=== PATIENT | male | born 1995 | race Caucasian/White ===

== ENCOUNTER 2019-03-27 21:39 | Emergency (ER) | payer OTHER ==
[2019-03-27 21:44] VITALS: PULSE 78
[2019-03-27] MEDS ORDERED: ACET/COD 300 MG/30 MG STARTER PACK 6 TAB BTL PO STA (22:32)
--- NOTE | 2019-03-27 22:38 | ED ---
Upper Extremity HPI - General Chief Complaint: Extremity Injury, Upper Stated Complaint: arm/hand pain & numbness Time Seen by Provider: 03/27/19 21:48 Source: patient Mode of arrival: ambulatory Limitations: no limitations - History of Present Illness Initial Comments: 24-year-old male presenting for pain in the joints of the hands bilaterally and the right wrist. 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 He states that he has a tingling sensation in his right hand that extends from below the wrist. Patient states the joints in all 5 digits of both hands have been hurting increasing for the past week. Patient states is work-related denies any direct trauma denies any redness or swelling. Denies any recent STDs. He denies any pain of the lower extremity joints or the elbows. Denies fevers. Patient denies any history of rheumatoid arthritis. Patient denies any neck pain. Her neck injury. Remaining review of systems negative. - Related Data Previous Rx's Medication Instructions Recorded Ibuprofen 800 mg PO Q8H PRN 7 Days #21 tablet 03/27/19 predniSONE 20 mg PO BID 4 Days #8 tab 03/27/19 Allergies Allergy/AdvReac Type Severity Reaction Status Date / Time No Known Allergies Allergy Verified 03/27/19 21:44 Review of Systems ROS Statement: Those systems with pertinent positive or pertinent negative responses have been documented in the HPI. ROS Other: All systems not noted in ROS Statement are negative. Past Medical History Past Medical History: No Reported History History of Any Multi-Drug Resistant Organisms: None Reported Past Surgical History: No Surgical Hx Reported Past Psychological History: No Psychological Hx Reported Smoking Status: Current every day smoker Past Alcohol Use History: Occasional Past Drug Use History: None Reported General Exam - General Exam Comments Initial Comments: General: The patient is awake and alert, in no distress, and does not appear acutely ill. Eye: Pupils are equal, round and reactive to light, extra-ocular movements are intact. No nystagmus. There is normal conjunctiva bilaterally. No signs of icterus. Ears, nose, mouth and throat: There are moist mucous membranes and no oral lesions. Neck: The neck is supple, there is no tenderness or JVD. Cardiovascular: There is a regular rate and rhythm. No murmur, rub or gallop is appreciated. Respiratory: Lungs are clear to auscultation, respirations are non-labored, breath sounds are equal. No wheezes, stridor, rales, or rhonchi. Musculoskeletal: Normal inspection of the hands bilaterally and wrists. No smoking soft tissue swelling patient is able to fully range at the MTP DIP and PIP joints. Patient is able to flex extend at the wrist and the okay fingers crossed and thumbs up sign of the hands bilaterally. +2 radial pulses equal comparison bilaterally. Positive Tinel sign of the right wrist. Patient is full sensation. Proximal distal to complaint sites. Patient has no midline tenderness to palpation of the cervical spine. Full strength of the upper extremities equal and comparison bilaterally. No noted redness. Neurological: A&O x 3. CN II-XII intact, There are no obvious motor or sensory deficits. Coordination appears grossly intact. Speech is normal. Skin: Skin is warm and dry and no rashes or lesions are noted. Psychiatric: Cooperative, appropriate mood & affect, normal judgment. 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 Increasing for the past week. States he was lifting very heavy objects. Positive Tinel sign. No soft tissue swelling. No trauma to the hand. No recent STDs. No conjunctival injection on examination. No pain with urination or penile discharge. Remaining review systems negative. Patient is agreeable with discharge without imaging studies as there is no direct trauma. Patient be given a prescription for steroids and NSAIDs. Patient is instructed to follow- up with primary care provider. Eyes occupation to rest ice hands. Patient was provided work note, discussed case with Dr. Bautista who is agreeable with [facility]. Disposition Clinical Impression: Overuse injury, Bilateral hand pain Disposition: HOME SELF-CARE Condition: Good Instructions (If sedation given, give patient instructions): Paresthesia (ED), Tendinitis (ED) Additional Instructions: Please use medication as discussed. Please follow-up with family doctor in the next 2 days. Rest hand/wrists. Please return to emergency room if the symptoms increase or worsen or for any other concerns. Prescriptions: Ibuprofen 800 mg PO Q8H PRN 7 Days #21 tablet PRN Reason: Pain predniSONE 20 mg PO BID 4 Days #8 tab Is patient prescribed a controlled substance at d/c from ED?: No Referrals: None,Stated [Primary Care Provider] - 1-2 days Time of Disposition: 22:37
[2019-03-27 23:03] VITALS: BP 142/75; RESP 16; TEMP 97.8
== END 2019-03-27 23:00 | disposition home or self-care (01) ==
LOC: EC 21:39
DX: M70.841 Other soft tissue disorders related to use, overuse and pressure, right hand (principal); M70.842 Other soft tissue disorders related to use, overuse and pressure, left hand; F17.200 Nicotine dependence, unspecified, uncomplicated; X50.0XXA Overexertion from strenuous movement or load, initial encounter; Y93.89 Activity, other specified
CPT/HCPCS: 99283

== ENCOUNTER 2019-07-26 16:56 | Emergency (ER) | payer SELFPAY ==
[2019-07-26] MEDS ORDERED: SODIUM CHLORIDE 0.9% 1,000 ML IV STA (17:25)
[2019-07-26] MEDS ORDERED: ONDANSETRON 4 MG/2 ML VIAL IVP STA (17:25)
[2019-07-26 18:07] LABS: Basophils % (A) 0 %; Eosinophils % (A) 1 %; HCT 39.3 % (39.0-53.0); HGB 13.6 gm/dL (13.0-17.5); Lymphocytes # (A) 1.2 k/uL (1.0-4.8); Lymphocytes % (A) 15 %; MCH 33.5 pg (25.0-35.0); MCHC 34.5 g/dL (31.0-37.0); MCV 97.3 fL (80.0-100.0); Mean Platelet Volume 7.2; Monocytes # (A) 0.5 k/uL (0-1.0); Monocytes % (A) 7 %; Neutrophils # (A) 6.1 k/uL (1.3-7.7); Neutrophils % (A) 76 %; Platelet Count 183 k/uL (150-450); RBC 4.04 m/uL (4.30-5.90); RDW 11.6 % (11.5-15.5); WBC 8.1 k/uL (3.8-10.6)
[2019-07-26 18:10] LABS: Appearance,Urine Clear (Clear); Bilirubin,Urine Negative (Negative); Blood,Urine Negative (Negative); Color,Urine Yellow; Glucose,Urine (UA) Negative (Negative); Ketones,Urine 3+ (Negative); Leukocyte Esterase,Urine Negative (Negative); Nitrite,Urine Negative (Negative); PH, Urine 7.5 (5.0-8.0); Protein,Urine Trace (Negative); Specific Gravity,Urine 1.027 (1.001-1.035)
[2019-07-26 18:21] LABS: Amphetamine Screen,Urine Detected (NotDetected); Barbiturate Screen,Urine Not Detected (NotDetected); Benzodiazepines Screen,Urine Detected (NotDetected); Cocaine Screen,Urine Not Detected (NotDetected); Methadone Screen, Urine Not Detected (NotDetected); Opiate Screen,Urine Not Detected (NotDetected); Oxycodone Screen, Urine Not Detected (NotDetected); Phencyclidine Screen,Urine Not Detected (NotDetected); Tricyclic Antidepressant,Urine Not Detected (NotDetected); Urn Cannabinoid Scrn Not Detected (NotDetected)
[2019-07-26 18:25] LABS: ALT 35 U/L (21-72); AST 45 U/L (17-59); Acetaminophen <10.0 ug/mL; African American GFR (CKD) >90 (>60 ml/min/1.73 sqM); Albumin 4.1 g/dL (3.5-5.0); Alkaline Phosphatase 58 U/L (38-126); Amylase <30 U/L (30-110); Anion Gap 12 mmol/L; Blood Urea Nitrogen 22 mg/dL (9-20); Calcium 9.6 mg/dL (8.4-10.2); Carbon Dioxide 24 mmol/L (22-30); Chloride 102 mmol/L (98-107); Glucose 139 mg/dL (74-99); Non-African American GFR(CKD) >90 (>60 ml/min/1.73 sqM); Potassium 3.6 mmol/L (3.5-5.1); Sodium 138 mmol/L (137-145); Total Bilirubin 0.9 mg/dL (0.2-1.3); Total Protein 6.3 g/dL (6.3-8.2)
[2019-07-26 18:34] LABS: Partial Thromboplastin Time 29.9 sec (22.0-30.0); Prothrombin Time 10.9 sec (9.0-12.0)
--- NOTE | 2019-07-26 18:53 | ED ---
General Adult HPI - General Chief complaint: Overdose Stated complaint: Side pain/numbess/jaw pain Time Seen by Provider: 07/26/19 17:18 Source: patient Mode of arrival: ambulatory Limitations: no limitations - History of Present Illness Initial comments: Patient is a 24-year-old male presenting to the emergency Department with complaints of nausea, vomiting and abdominal pain as going on since this morning. Patient states he thinks he took 4 tablets of 750 Vicodin that were really old that he found. Patient states a few hours after he took these he started having nausea and vomiting and abdominal cramping. Patient denies smoking history but does admit to drug history but will not elaborate on what he takes. Patient denies having suicidal or homicidal thoughts. Patient denies fever, chills, diarrhea. Patient denies history of abdominal surgeries. Patient having regular bowel movements. Patient has no other complaints at this time. Upon arrival to ER, vital signs are stable. - Related Data Previous Rx's Medication Instructions Recorded Ibuprofen 800 mg PO Q8H PRN 7 Days #21 tablet 03/27/19 predniSONE 20 mg PO BID 4 Days #8 tab 03/27/19 Allergies Allergy/AdvReac Type Severity Reaction Status Date / Time No Known Allergies Allergy Verified 03/27/19 21:44 Review of Systems ROS Statement: Those systems with pertinent positive or pertinent negative responses have been documented in the HPI. ROS Other: All systems not noted in ROS Statement are negative. Past Medical History Past Medical History: No Reported History History of Any Multi-Drug Resistant Organisms: None Reported Past Surgical History: No Surgical Hx Reported Past Psychological History: No Psychological Hx Reported Smoking Status: Current every day smoker Past Alcohol Use History: Occasional Past Drug Use History: None Reported General Exam - General Exam Comments Initial Comments: GENERAL: Patient is resting comfortably on the bed during exam, disheveled in appearance. HEAD: Atraumatic, normocephalic. EYES: Pupils equal round and reactive to light, extraocular movements intact, sclera anicteric, conjunctiva are normal. ENT: TMs normal, nares patent, oropharynx clear without exudates. Moist mucous membranes. NECK: Normal range of motion, supple without lymphadenopathy or JVD. LUNGS: Breath sounds clear to auscultation bilaterally and equal. No wheezes rales or rhonchi. HEART: Regular rate and rhythm without murmurs, rubs or gallops. ABDOMEN: Mild tenderness to palpation of the entire abdomen. No severe tenderness in any quadrant. Soft, normoactive bowel sounds. No masses appreciated. : Deferred EXTREMITIES: Normal range of motion, no pitting or edema. No clubbing or cyanosis. NEUROLOGICAL: Cranial nerves II through XII grossly intact. Normal speech, normal gait. PSYCH: Normal mood, normal affect. SKIN: Warm, Dry, normal turgor, no rashes or lesions noted. Limitations: no limitations Course Vital Signs 07/26/19 07/26/19 17:06 19:10 Temperature 97.5 F L 98 F Pulse Rate 78 75 Respiratory 16 18 Rate Blood Pressure 115/75 120/70 O2 Sat by Pulse 100 98 Oximetry Medical Decision Making - Medical Decision Making Patient is a 24-year-old male presenting with nausea, vomiting, abdominal cramping since this morning. Patient admits to taking 4 tablets of what he thinks his Vicodin. Patient admits to taking different tablets, whatever he can get his hands on. CBC normal, coags are normal. CMP is normal. Urine shows 3+ ketones otherwise no signs of infection. Urine tox shows amphetamines and benzos. Acetaminophen is normal. Opiates are negative. Patient was given fluids and Zofran and reports improvement in symptoms. Patient is requesting to be discharged. Patient vital signs remained stable. Strict return parameters were discussed with the patient and he verbalized understanding. Case discussed with Dr. Kate. - Lab Data Result diagrams: 07/26/19 17:55 07/26/19 17:55 Lab Results 07/26/19 07/26/19 07/26/19 Range/Units 17:55 17:55 17:55 WBC 8.1 (3.8-10.6) k/uL RBC 4.04 L (4.30-5.90) m/uL Hgb 13.6 (13.0-17.5) gm/dL Hct 39.3 (39.0-53.0) % MCV 97.3 (80.0-100.0) fL MCH 33.5 (25.0-35.0) pg MCHC 34.5 (31.0-37.0) g/dL RDW 11.6 (11.5-15.5) % Plt Count 183 (150-450) k/uL Neutrophils % 76 % Lymphocytes % 15 % Monocytes % 7 % Eosinophils % 1 % Basophils % 0 % Neutrophils # 6.1 (1.3-7.7) k/uL Lymphocytes # 1.2 (1.0-4.8) k/uL Monocytes # 0.5 (0-1.0) k/uL Eosinophils # 0.0 (0-0.7) k/uL Basophils # 0.0 (0-0.2) k/uL PT 10.9 (9.0-12.0) sec INR 1.0 (<1.2) APTT 29.9 (22.0-30.0) sec Sodium 138 (137-145) mmol/L Potassium 3.6 (3.5-5.1) mmol/L Chloride 102 (98-107) mmol/L Carbon Dioxide 24 (22-30) mmol/L Anion Gap 12 mmol/L BUN 22 H (9-20) mg/dL Creatinine 0.83 (0.66-1.25) mg/dL Est GFR (CKD-EPI)AfAm >90 (>60 ml/min/1.73 sqM) Est GFR (CKD-EPI)NonAf >90 (>60 ml/min/1.73 sqM) Glucose 139 H (74-99) mg/dL Calcium 9.6 (8.4-10.2) mg/dL Total Bilirubin 0.9 (0.2-1.3) mg/dL AST 45 (17-59) U/L ALT 35 (21-72) U/L Alkaline Phosphatase 58 (38-126) U/L Total Protein 6.3 (6.3-8.2) g/dL Albumin 4.1 (3.5-5.0) g/dL Amylase <30 L (30-110) U/L Lipase 31 (23-300) U/L Urine Color Urine Appearance (Clear) Urine pH (5.0-8.0) Ur Specific [place] (1.001-1.035) Urine Protein (Negative) Urine Glucose (UA) (Negative) Urine Ketones (Negative) Urine Blood (Negative) Urine Nitrite (Negative) Urine Bilirubin (Negative) Urine Urobilinogen (<2.0) mg/dL Ur Leukocyte Esterase (Negative) Urine Opiates Screen (NotDetected) Ur Oxycodone Screen (NotDetected) Urine Methadone Screen (NotDetected) Ur Propoxyphene Screen (NotDetected) Acetaminophen <10.0 ug/mL Ur Barbiturates Screen (NotDetected) U Tricyclic Antidepress (NotDetected) Ur Phencyclidine Scrn (NotDetected) Ur Amphetamines Screen (NotDetected) U Methamphetamines Scrn (NotDetected) U Benzodiazepines Scrn (NotDetected) Urine Cocaine Screen (NotDetected) U Marijuana (THC) Screen (NotDetected) 07/26/19 Range/Units 18:00 WBC (3.8-10.6) k/uL RBC (4.30-5.90) m/uL Hgb (13.0-17.5) gm/dL Hct (39.0-53.0) % MCV (80.0-100.0) fL MCH (25.0-35.0) pg MCHC (31.0-37.0) g/dL RDW (11.5-15.5) % Plt Count (150-450) k/uL Neutrophils % % Lymphocytes % % Monocytes % % Eosinophils % % Basophils % % Neutrophils # (1.3-7.7) k/uL Lymphocytes # (1.0-4.8) k/uL Monocytes # (0-1.0) k/uL Eosinophils # (0-0.7) k/uL Basophils # (0-0.2) k/uL PT (9.0-12.0) sec INR (<1.2) APTT (22.0-30.0) sec Sodium (137-145) mmol/L Potassium (3.5-5.1) mmol/L Chloride (98-107) mmol/L Carbon Dioxide (22-30) mmol/L Anion Gap mmol/L BUN (9-20) mg/dL Creatinine (0.66-1.25) mg/dL Est GFR (CKD-EPI)AfAm (>60 ml/min/1.73 sqM) Est GFR (CKD-EPI)NonAf (>60 ml/min/1.73 sqM) Glucose (74-99) mg/dL Calcium (8.4-10.2) mg/dL Total Bilirubin (0.2-1.3) mg/dL AST (17-59) U/L ALT (21-72) U/L Alkaline Phosphatase (38-126) U/L Total Protein (6.3-8.2) g/dL Albumin (3.5-5.0) g/dL Amylase (30-110) U/L Lipase (23-300) U/L Urine Color Yellow Urine Appearance Clear (Clear) Urine pH 7.5 (5.0-8.0) Ur Specific [place] 1.027 (1.001-1.035) Urine Protein Trace H (Negative) Urine Glucose (UA) Negative (Negative) Urine Ketones 3+ H (Negative) Urine Blood Negative (Negative) Urine Nitrite Negative (Negative) Urine Bilirubin Negative (Negative) Urine Urobilinogen 2.0 (<2.0) mg/dL Ur Leukocyte Esterase Negative (Negative) Urine Opiates Screen Not Detected (NotDetected) Ur Oxycodone Screen Not Detected (NotDetected) Urine Methadone Screen Not Detected (NotDetected) Ur Propoxyphene Screen Not Detected (NotDetected) Acetaminophen ug/mL Ur Barbiturates Screen Not Detected (NotDetected) U Tricyclic Antidepress Not Detected (NotDetected) Ur Phencyclidine Scrn Not Detected (NotDetected) Ur Amphetamines Screen Detected H (NotDetected) U Methamphetamines Scrn Not Detected (NotDetected) U Benzodiazepines Scrn Detected H (NotDetected) Urine Cocaine Screen Not Detected (NotDetected) U Marijuana (THC) Screen Not Detected (NotDetected) Disposition Clinical Impression: Nausea & vomiting Disposition: HOME SELF-CARE Condition: Stable Instructions (If sedation given, give patient instructions): Acute Nausea and Vomiting (ED) Additional Instructions: Please return to the Emergency Department if symptoms worsen or any other concerns. Is patient prescribed a controlled substance at d/c from ED?: No Referrals: None,Stated [Primary Care Provider] - 1-2 days
[2019-07-26 19:12] VITALS: BP 120/70; PULSE 75; RESP 18; TEMP 98
== END 2019-07-26 19:13 | disposition home or self-care (01) ==
LOC: EC 16:56
DX: R11.2 Nausea with vomiting, unspecified (principal); R10.9 Unspecified abdominal pain; R20.0 Anesthesia of skin; R68.84 Jaw pain; F17.200 Nicotine dependence, unspecified, uncomplicated
CPT/HCPCS: 36415; 80053; 82150; 83690; 85025; 85610; 85730; 81003; 80306; 80329; 99284; 96374; 96361; J2405

== ENCOUNTER 2020-06-28 19:09 | Inpatient (IN) | payer MEDICAID, OTHER ==
--- NOTE | 2020-06-28 19:58 | ED ---
Overdose HPI - General Stated Complaint: Post Op - R Hand Injury Time Seen by Provider: 06/28/20 19:57 Source: RN notes reviewed, old records reviewed Limitations: no limitations - History of Present Illness Initial Comments: This is a 25-year-old male DF for evaluation patient originally presented to the ER today for complaint of right hand pain history of right hand surgery. Patient is in no significant drug abuser, [place] who is waiting in the waiting room patient did overdose he was resuscitated while he was in an 8 is a priority one given Narcan after being ventilated and was able to respond. At this time patient states that he is wants to and complaining of severe pain in his right hand MD Complaint: intentional overdose, other -: days(s) Intent: want to go to sleep, want to escape How Overdose Was Discovered: called family/friend Context: Intentional Overdose: relationship problems Context: Accidental Overdose: wanted to get high Associated Symptoms: depression Treatments Prior to Arrival: none - Related Data Home Medications Medication Instructions Recorded Confirmed No Known Home Medications 06/29/20 06/29/20 Allergies Allergy/AdvReac Type Severity Reaction Status Date / Time No Known Allergies Allergy Verified 06/29/20 16:38 Review of Systems ROS Statement: Those systems with pertinent positive or pertinent negative responses have been documented in the HPI. ROS Other: All systems not noted in ROS Statement are negative. Past Medical History Past Medical History: No Reported History History of Any Multi-Drug Resistant Organisms: None Reported Past Surgical History: No Surgical Hx Reported Past Psychological History: No Psychological Hx Reported Past Alcohol Use History: Occasional Past Drug Use History: None Reported - Past Family History Mother Family Medical History: No Reported History General Exam Limitations: altered mental status, physical limitation General appearance: obtunded Head exam: Present: atraumatic, normocephalic, normal inspection Eye exam: Present: normal appearance, other (Pinpoint pupils). Absent: scleral icterus, conjunctival injection, periorbital swelling ENT exam: Present: normal exam, mucous membranes moist Neck exam: Present: normal inspection. Absent: tenderness, meningismus, lymphadenopathy Respiratory exam: Present: other (Patient is a). Absent: respiratory distress, wheezes, rales, rhonchi, stridor Cardiovascular Exam: Present: normal rhythm, tachycardia, normal heart sounds. Absent: systolic murmur, diastolic murmur, rubs, gallop, clicks GI/Abdominal exam: Present: soft, normal bowel sounds. Absent: distended, tenderness, guarding, rebound, rigid Extremities exam: Present: normal inspection, full ROM, normal capillary refill. Absent: tenderness, pedal edema, joint swelling, calf tenderness Back exam: Present: normal inspection Neurological exam: Present: alert, oriented X3, CN II-XII intact Psychiatric exam: Present: normal affect, normal mood Skin exam: Present: warm, dry, intact, normal color. Absent: rash Course Vital Signs 06/28/20 06/28/20 06/29/20 19:44 19:46 03:00 Temperature 98.3 F Pulse Rate 110 H 105 H Respiratory 20 20 16 Rate Blood Pressure 158/88 142/90 O2 Sat by Pulse 98 98 Oximetry 06/29/20 15:42 Temperature 98.1 F Pulse Rate 72 Respiratory 18 Rate Blood Pressure 114/64 O2 Sat by Pulse 100 Oximetry - Reevaluation(s) Reevaluation #1: 06/28/20 21:48 Medical record is reviewed 06/28/20 21:49 Upon ER patient was resuscitated, given Narcan with significant response the patient was bagged for a good a lot of time prior to Narcan and IV were started She continues to make suicidal comments here in the ER For psychiatric evaluation Medical Decision Making - Medical Decision Making 25 male who did present after apnea secondary to retinal use coming in for resuscitation secondary to Narcan being given for opiate overdose. Patient then started making suicidal thoughts and comments. Patient will be admitted for psychiatric evaluation and treatment - Lab Data Result diagrams: 06/28/20 20:45 06/28/20 20:45 Lab Results 06/28/20 06/28/20 06/28/20 Range/Units 20:45 20:45 20:45 WBC 13.7 H (3.8-10.6) k/uL RBC 4.21 L (4.30-5.90) m/uL Hgb 14.3 (13.0-17.5) gm/dL Hct 41.4 (39.0-53.0) % MCV 98.4 (80.0-100.0) fL MCH 34.0 (25.0-35.0) pg MCHC 34.5 (31.0-37.0) g/dL RDW 12.2 (11.5-15.5) % Plt Count 255 (150-450) k/uL Neutrophils % 68 % Lymphocytes % 24 % Monocytes % 5 % Eosinophils % 1 % Basophils % 1 % Neutrophils # 9.3 H (1.3-7.7) k/uL Lymphocytes # 3.3 (1.0-4.8) k/uL Monocytes # 0.7 (0-1.0) k/uL Eosinophils # 0.1 (0-0.7) k/uL Basophils # 0.1 (0-0.2) k/uL PT 9.8 (9.0-12.0) sec INR 0.9 (<1.2) Sodium (137-145) mmol/L Potassium (3.5-5.1) mmol/L Chloride (98-107) mmol/L Carbon Dioxide (22-30) mmol/L Anion Gap mmol/L BUN (9-20) mg/dL Creatinine (0.66-1.25) mg/dL Est GFR (CKD-EPI)AfAm (>60 ml/min/1.73 sqM) Est GFR (CKD-EPI)NonAf (>60 ml/min/1.73 sqM) Glucose (74-99) mg/dL Calcium (8.4-10.2) mg/dL Phosphorus (2.5-4.5) mg/dL Magnesium (1.6-2.3) mg/dL Total Bilirubin (0.2-1.3) mg/dL AST (17-59) U/L ALT (4-49) U/L Alkaline Phosphatase (38-126) U/L Creatine Kinase (55-170) U/L Total Protein (6.3-8.2) g/dL Albumin (3.5-5.0) g/dL Lipase (23-300) U/L Salicylates mg/dL Urine Opiates Screen Not Detected (NotDetected) Ur Oxycodone Screen Not Detected (NotDetected) Urine Methadone Screen Not Detected (NotDetected) Ur Propoxyphene Screen Not Detected (NotDetected) Acetaminophen ug/mL Ur Barbiturates Screen Not Detected (NotDetected) U Tricyclic Antidepress Not Detected (NotDetected) Ur Phencyclidine Scrn Not Detected (NotDetected) Ur Amphetamines Screen Detected H (NotDetected) U Methamphetamines Scrn Not Detected (NotDetected) U Benzodiazepines Scrn Detected H (NotDetected) Urine Cocaine Screen Not Detected (NotDetected) U Marijuana (THC) Screen Not Detected (NotDetected) Serum Alcohol mg/dL 06/28/20 Range/Units 20:45 WBC (3.8-10.6) k/uL RBC (4.30-5.90) m/uL Hgb (13.0-17.5) gm/dL Hct (39.0-53.0) % MCV (80.0-100.0) fL MCH (25.0-35.0) pg MCHC (31.0-37.0) g/dL RDW (11.5-15.5) % Plt Count (150-450) k/uL Neutrophils % % Lymphocytes % % Monocytes % % Eosinophils % % Basophils % % Neutrophils # (1.3-7.7) k/uL Lymphocytes # (1.0-4.8) k/uL Monocytes # (0-1.0) k/uL Eosinophils # (0-0.7) k/uL Basophils # (0-0.2) k/uL PT (9.0-12.0) sec INR (<1.2) Sodium 148 H (137-145) mmol/L Potassium 4.4 (3.5-5.1) mmol/L Chloride 114 H (98-107) mmol/L Carbon Dioxide 23 (22-30) mmol/L Anion Gap 11 mmol/L BUN 15 (9-20) mg/dL Creatinine 0.85 (0.66-1.25) mg/dL Est GFR (CKD-EPI)AfAm >90 (>60 ml/min/1.73 sqM) Est GFR (CKD-EPI)NonAf >90 (>60 ml/min/1.73 sqM) Glucose 101 H (74-99) mg/dL Calcium 9.0 (8.4-10.2) mg/dL Phosphorus 4.4 (2.5-4.5) mg/dL Magnesium 2.2 (1.6-2.3) mg/dL Total Bilirubin 0.3 (0.2-1.3) mg/dL AST 48 (17-59) U/L ALT 256 H (4-49) U/L Alkaline Phosphatase 72 (38-126) U/L Creatine Kinase 135 (55-170) U/L Total Protein 7.1 (6.3-8.2) g/dL Albumin 4.5 (3.5-5.0) g/dL Lipase 104 (23-300) U/L Salicylates <1.0 mg/dL Urine Opiates Screen (NotDetected) Ur Oxycodone Screen (NotDetected) Urine Methadone Screen (NotDetected) Ur Propoxyphene Screen (NotDetected) Acetaminophen <10.0 ug/mL Ur Barbiturates Screen (NotDetected) U Tricyclic Antidepress (NotDetected) Ur Phencyclidine Scrn (NotDetected) Ur Amphetamines Screen (NotDetected) U Methamphetamines Scrn (NotDetected) U Benzodiazepines Scrn (NotDetected) Urine Cocaine Screen (NotDetected) U Marijuana (THC) Screen (NotDetected) Serum Alcohol 246 H* mg/dL Critical Care Time Critical Care Time: Yes Total Critical Care Time: 31 Disposition Clinical Impression: Adjustment disorder with depressed mood, Opiate use, Drug overdose Disposition: TRANSFER TO PSYCH HOSP/UNIT Condition: Fair Is patient prescribed a controlled substance at d/c from ED?: No
[2020-06-28] MEDS ORDERED: SODIUM CHLORIDE 0.9% 1,000 ML IV STA (20:12)
[2020-06-28] MEDS ORDERED: LORazepam 2 MG/ML INJ IV STA (20:13)
[2020-06-28] MEDS ORDERED: ONDANSETRON 4 MG/2 ML VIAL IVP STA (20:41)
[2020-06-28] MEDS ORDERED: NALOXONE 0.4 MG/ML 10 ML VIAL IVP STA (20:41)
--- NOTE | 2020-06-28 20:41 | XR ---
EXAMINATION TYPE: XR chest 2V DATE OF EXAM: 06/28/2020 COMPARISON: NONE HISTORY: Overdose TECHNIQUE: 3 views FINDINGS: Heart and mediastinum are normal. Lungs are clear. Diaphragm is normal. Bony thorax appears normal. There is no pneumothorax. IMPRESSION: Normal chest.
--- NOTE | 2020-06-28 20:42 | XR ---
EXAMINATION TYPE: XR wrist complete RT DATE OF EXAM: 06/28/2020 COMPARISON: NONE HISTORY: Wrist pain TECHNIQUE: 4 views FINDINGS: There are 2 pins fixing the fifth carpometacarpal joint. There is a plate with screws fixin g an old fracture of the base of the fourth metacarpal. I see no acute fracture nor dislocation. Radi ocarpal joint is anatomic. IMPRESSION: No acute abnormality of the right wrist.
[2020-06-28 21:00] LABS: Basophils # (A) 0.1 k/uL (0-0.2); Basophils % (A) 1 %; Eosinophils # (A) 0.1 k/uL (0-0.7); Eosinophils % (A) 1 %; HCT 41.4 % (39.0-53.0); HGB 14.3 gm/dL (13.0-17.5); Lymphocytes # (A) 3.3 k/uL (1.0-4.8); Lymphocytes % (A) 24 %; MCHC 34.5 g/dL (31.0-37.0); MCV 98.4 fL (80.0-100.0); Mean Platelet Volume 6.7; Monocytes # (A) 0.7 k/uL (0-1.0); Monocytes % (A) 5 %; Neutrophils # (A) 9.3 k/uL (1.3-7.7); Neutrophils % (A) 68 %; Platelet Count 255 k/uL (150-450); RBC 4.21 m/uL (4.30-5.90); RDW 12.2 % (11.5-15.5); WBC 13.7 k/uL (3.8-10.6)
[2020-06-28 21:16] LABS: ALT 256 U/L (4-49); AST 48 U/L (17-59); Acetaminophen <10.0 ug/mL; African American GFR (CKD) >90 (>60 ml/min/1.73 sqM); Albumin 4.5 g/dL (3.5-5.0); Alkaline Phosphatase 72 U/L (38-126); Anion Gap 11 mmol/L; Blood Urea Nitrogen 15 mg/dL (9-20); Carbon Dioxide 23 mmol/L (22-30); Chloride 114 mmol/L (98-107); Creatine Kinase 135 U/L (55-170); Glucose 101 mg/dL (74-99); Lipase 104 U/L (23-300); Magnesium 2.2 mg/dL (1.6-2.3); Non-African American GFR(CKD) >90 (>60 ml/min/1.73 sqM); Phosphorus 4.4 mg/dL (2.5-4.5); Potassium 4.4 mmol/L (3.5-5.1); Salicylate <1.0 mg/dL; Sodium 148 mmol/L (137-145); Total Bilirubin 0.3 mg/dL (0.2-1.3); Total Protein 7.1 g/dL (6.3-8.2)
[2020-06-28 21:18] LABS: Alcohol 246 mg/dL
[2020-06-28 21:30] LABS: INR 0.9 (<1.2); Prothrombin Time 9.8 sec (9.0-12.0)
[2020-06-29] MEDS ORDERED: NICOTINE 21MG/24HR PATCH TRANSDERM STA (00:18)
[2020-06-29] MEDS ORDERED: IBUPROFEN 600 MG TAB PO STA ×2 (00:18→04:45)
[2020-06-29 01:13] LABS: Amphetamine Screen,Urine Detected (NotDetected); Barbiturate Screen,Urine Not Detected (NotDetected); Benzodiazepines Screen,Urine Detected (NotDetected); Cocaine Screen,Urine Not Detected (NotDetected); Methadone Screen, Urine Not Detected (NotDetected); Opiate Screen,Urine Not Detected (NotDetected); Oxycodone Screen, Urine Not Detected (NotDetected); Phencyclidine Screen,Urine Not Detected (NotDetected); Tricyclic Antidepressant,Urine Not Detected (NotDetected); Urn Cannabinoid Scrn Not Detected (NotDetected)
[2020-06-29] MEDS ORDERED: LORazepam 2 MG/ML INJ IM STA ×2 (06:15→09:35)
[2020-06-29] MEDS ORDERED: ACETAMINOPHEN TAB 325 MG TAB PO STA (08:43)
[2020-06-29] MEDS ORDERED: LORazepam 1 MG TAB PO STA (09:04)
[2020-06-29] MEDS ORDERED: ZIPRASIDONE 20 MG VIAL IM STA (09:35)
[2020-06-29 15:44] VITALS: RESP 18
[2020-06-29] MEDS ORDERED: ACETAMINOPHEN TAB 325 MG TAB PO PRN (16:11)
[2020-06-29] MEDS ORDERED: ZIPRASIDONE 20 MG VIAL IM PRN (16:11)
[2020-06-29] MEDS ORDERED: MAG HYDROX/AL HYDROX/SIMETH 30 ML CUP PO PRN (16:11)
[2020-06-29] MEDS ORDERED: MAGNESIUM HYDROXIDE 2,400 MG/10 ML CUP PO PRN (16:11)
[2020-06-29] MEDS ORDERED: LORazepam 2 MG/ML INJ IM PRN (16:13)
[2020-06-29] MEDS: IBUPROFEN 800 MG TAB PO PRN (18:41)
[2020-06-29] MEDS: LORazepam 1 MG TAB PO PRN (18:42)
[2020-06-29] MEDS: NICOTINE 21MG/24HR PATCH TRANSDERM SCH (23:52)
[2020-06-30] MEDS: NICOTINE 21MG/24HR PATCH TRANSDERM SCH ×3 (01:09→09:30)
[2020-06-30] MEDS: IBUPROFEN 800 MG TAB PO PRN ×2 (01:09→09:26)
[2020-06-30] MEDS: LORazepam 1 MG TAB PO PRN ×2 (01:10→09:29)
[2020-06-30 01:12] VITALS: BP 128/95; PULSE 114
[2020-06-30] MEDS ORDERED: NICOTINE 21MG/24HR PATCH TRANSDERM SCH (09:00)
--- NOTE | 2020-06-30 09:07 | P.CNOR ---
History of Present Illness - [facility] Consult date: 06/30/20 Consult reason: other (Right hand pain) History of present illness: The patient's a 25-year-old [id number] male who presents after undergoing surgery 3 weeks ago for a right hand injury with increasing pain. He denies fevers or chills. He notes recent difficulties with substance and alcohol abuse. Review of Systems Musculoskeletal: right: hand swelling Past Medical History Past Medical History: No Reported History Additional Past Medical History / Comment(s): Substance abuse History of Any Multi-Drug Resistant Organisms: None Reported Past Surgical History: No Surgical Hx Reported Additional Past Surgical History / Comment(s): Plates/screws right wrist approximately 06-06-20 at [facility] with Dr. Hernandez. Was supposed to finish all antibiotics after surgery, but only took a few. Patient was supposed to have plates and screws removed last week, but was unable due to elevated liver enzymes. Patient stated he removed his cast because it got "wet". Past Anesthesia/Blood Transfusion Reactions: No Reported Reaction Past Psychological History: No Psychological Hx Reported Smoking Status: Current every day smoker Past Alcohol Use History: Occasional Past Drug Use History: Heroin, Opiates - Past Family History Mother Family Medical History: No Reported History Medications and Allergies Home Medications Medication Instructions Recorded Confirmed Type No Known Home Medications 06/29/20 06/29/20 History Allergies Allergy/AdvReac Type Severity Reaction Status Date / Time No Known Allergies Allergy Verified 06/29/20 16:38 Physical Examination - Wrist & Hand right Location of pain: dorsal hand Wound/scarring location: Dorsal incision right ulnar hand with moderate swelling/no drainage Results Moderate limitation range of motion right digits No rotational abnormality of the right digits Light touch mildly diminished right ring finger and small finger Dorsal pin sites clean dry Mild tenderness right fourth and fifth carpometacarpal joints Capillary refill less than 2 seconds right digits - Labs Labs: H & H 06/28/20 Range/Units 20:45 Hgb 14.3 (13.0-17.5) gm/dL Hct 41.4 (39.0-53.0) % Coagulation 06/28/20 Range/Units 20:45 INR 0.9 (<1.2) Result Diagrams: 06/28/20 20:45 06/28/20 20:45 - Diagnostic results Wrist/Hand x-ray: image reviewed (Previous ORIF right proximal fourth metacarpal fracture and pinning of the fifth CMC joint) Assessment and Plan Assessment: Status post ORIF right fourth metacarpal base fracture and pinning of the fifth carpometacarpal joint Irritating hardware right hand Substance abuse Plan: I talked with the patient regarding his options. If he goes home today, we will prescribe Keflex until he sees his operating hand specialist. He should wear his brace. If he stays until tomorrow, we will bring him to the operating room for sedation and pin removal.
--- NOTE | 2020-06-30 12:43 | P.HP ---
Psychiatric H&P - . H&P Date: 06/30/20 History & Physical: Allergies Allergy/AdvReac Type Severity Reaction Status Date / Time No Known Allergies Allergy Verified 06/29/20 16:38 Vital Signs Temp 98.7 F 06/30/20 01:12 Pulse 114 H 06/30/20 01:12 Resp 18 06/30/20 01:12 BP 128/95 06/30/20 01:12 Pulse Ox 98 06/29/20 16:26 Intake & Output 06/29/20 06/30/20 06/30/20 18:59 06:59 18:59 Weight 72.773 kg Laboratory Last Values WBC 13.7 k/uL (3.8-10.6) H 06/28/20 20:45 RBC 4.21 m/uL (4.30-5.90) L 06/28/20 20:45 Hgb 14.3 gm/dL (13.0-17.5) 06/28/20 20:45 Hct 41.4 % (39.0-53.0) 06/28/20 20:45 MCV 98.4 fL (80.0-100.0) 06/28/20 20:45 MCH 34.0 pg (25.0-35.0) 06/28/20 20:45 MCHC 34.5 g/dL (31.0-37.0) 06/28/20 20:45 RDW 12.2 % (11.5-15.5) 06/28/20 20:45 Plt Count 255 k/uL (150-450) 06/28/20 20:45 Neutrophils % 68 % 06/28/20 20:45 Lymphocytes % 24 % 06/28/20 20:45 Monocytes % 5 % 06/28/20 20:45 Eosinophils % 1 % 06/28/20 20:45 Basophils % 1 % 06/28/20 20:45 Neutrophils # 9.3 k/uL (1.3-7.7) H 06/28/20 20:45 Lymphocytes # 3.3 k/uL (1.0-4.8) 06/28/20 20:45 Monocytes # 0.7 k/uL (0-1.0) 06/28/20 20:45 Eosinophils # 0.1 k/uL (0-0.7) 06/28/20 20:45 Basophils # 0.1 k/uL (0-0.2) 06/28/20 20:45 PT 9.8 sec (9.0-12.0) 06/28/20 20:45 INR 0.9 (<1.2) 06/28/20 20:45 Sodium 148 mmol/L (137-145) H 06/28/20 20:45 Potassium 4.4 mmol/L (3.5-5.1) 06/28/20 20:45 Chloride 114 mmol/L (98-107) H 06/28/20 20:45 Carbon Dioxide 23 mmol/L (22-30) 06/28/20 20:45 Anion Gap 11 mmol/L 06/28/20 20:45 BUN 15 mg/dL (9-20) 06/28/20 20:45 Creatinine 0.85 mg/dL (0.66-1.25) 06/28/20 20:45 Est GFR (CKD-EPI)AfAm >90 (>60 ml/min/1.73 sqM) 06/28/20 20:45 Est GFR (CKD-EPI)NonAf >90 (>60 ml/min/1.73 sqM) 06/28/20 20:45 Glucose 101 mg/dL (74-99) H 06/28/20 20:45 Calcium 9.0 mg/dL (8.4-10.2) 06/28/20 20:45 Phosphorus 4.4 mg/dL (2.5-4.5) 06/28/20 20:45 Magnesium 2.2 mg/dL (1.6-2.3) 06/28/20 20:45 Total Bilirubin 0.3 mg/dL (0.2-1.3) 06/28/20 20:45 AST 48 U/L (17-59) 06/28/20 20:45 ALT 256 U/L (4-49) H 06/28/20 20:45 Alkaline Phosphatase 72 U/L (38-126) 06/28/20 20:45 Creatine Kinase 135 U/L (55-170) 06/28/20 20:45 Total Protein 7.1 g/dL (6.3-8.2) 06/28/20 20:45 Albumin 4.5 g/dL (3.5-5.0) 06/28/20 20:45 Triglycerides 130 mg/dL (<150) 06/30/20 09:33 Cholesterol 124 mg/dL (<200) 06/30/20 09:33 LDL Cholesterol, Calc 49 mg/dL (0-99) 06/30/20 09:33 HDL Cholesterol 49 mg/dL (40-60) 06/30/20 09:33 Lipase 104 U/L (23-300) 06/28/20 20:45 TSH 0.556 mIU/L (0.465-4.680) 06/30/20 09:33 Salicylates <1.0 mg/dL 06/28/20 20:45 Urine Opiates Screen Not Detected (NotDetected) 06/28/20 20:45 Ur Oxycodone Screen Not Detected (NotDetected) 06/28/20 20:45 Urine Methadone Screen Not Detected (NotDetected) 06/28/20 20:45 Ur Propoxyphene Screen Not Detected (NotDetected) 06/28/20 20:45 Acetaminophen <10.0 ug/mL 06/28/20 20:45 Ur Barbiturates Screen Not Detected (NotDetected) 06/28/20 20:45 U Tricyclic Antidepress Not Detected (NotDetected) 06/28/20 20:45 Ur Phencyclidine Scrn Not Detected (NotDetected) 06/28/20 20:45 Ur Amphetamines Screen Detected (NotDetected) H 06/28/20 20:45 U Methamphetamines Scrn Not Detected (NotDetected) 06/28/20 20:45 U Benzodiazepines Scrn Detected (NotDetected) H 06/28/20 20:45 Urine Cocaine Screen Not Detected (NotDetected) 06/28/20 20:45 U Marijuana (THC) Screen Not Detected (NotDetected) 06/28/20 20:45 Serum Alcohol 246 mg/dL H* 06/28/20 20:45 06/30/20 12:32 IDENTIFYING DATA: Patient is a 25-year-old, single, unemployed, male with a significant history of ADHD and drug use admitted for suicidal ideation. HPI: Patient presented to the hospital in 06/28/2020 after expressing significant right hand pain. Patient reports that for the last 2 days his hand has been bothering him significantly. He reports that he has increased his alcohol use and is engaged in [id number] Tylenol use to help deal with his pain. He reports that when he came to [place], his friend was driving him to the hospital and offered him some heroin. Patient states that he took to heroin because the pain in his right hand was unbearable. He does not recall endorsing any suicidal ideation or intention. Currently he is not endorsing any significant symptoms of depression. He denies any hopelessness, helplessness, anhedonia, or suicidal or homicidal ideation, intention, and/or plan. He reports no prior attempts at suicide. He reports that the prior overdose that occurred was him taking multiple acetaminophen pills along with alcohol to help with his right hand pain as well. Prior to him breaking his hand, the patient reports no history of any overdoses. In regards other mood symptoms, the patient denies any history of nicolas. He denies any increased goal-directed activity, impulsivity, racing thoughts, or pressured speech. He denies any history of auditory or visualizations. He denies any delusions or paranoia. In regards to substance use, the patient reports experimenting on "Pretty much every drug in the past." He reports heavy alcohol use as well. He expresses that he realizes that he has to cut down on his substance use, which also includes the use of [id number] pain medication. He reports that he has never broken his hand before and this provider discussed tempering his expectations on being pain free. PAST PSYCHIATRIC HISTORY: Patient states that he has not been diagnosed with any psychiatric disorder in the past. Patient reports only a prior trial of trazodone in the past which she was using for insomnia. He denies any psychiatric hospitalizations. Currently not open to any outpatient psychiatric treatment but is open to going to counseling or other outpatient services. He vehemently denies any prior attempts at suicide. PMH: Denies ALLERGIES: NO KNOWN DRUG ALLERGIES CHEMICAL DEPENDENCY HISTORY: as per HPI. FAMILY PSYCHIATRIC/SUBSTANCE USE HISTORY: Reports that his maternal grandfather and uncles engage in heavy alcohol use. He reports that his paternal grandfather and uncles engage in drug use. SOCIAL HISTORY: Patient was born and raised in [place]. He graduated high school. 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 He has no kids, and is single. His hobbies include any outdoor activity. He is currently living with his cousin in [place]. MENTAL STATUS EXAM: General Appearance: Patient appears to be stated age is alert, directable, and attempts to cooperate. Patient appears to have fair hygiene and grooming. Behavior: Patient is seated without any agitated behavior. Speech: Patient's speech is fluent and nonpressured.Mood/Affect: Patient reports their mood is "okay." Affect is congruent and euthymic. Suicidality/Homicidality: Patient denies having any homicidal ideation intent or plan. Denies any suicidal ideations intent or plan Perceptions: Patient denies any visual hallucinations and denies any auditory hallucinations. Thought content/process: There is no evidence of any delusional thought content and thought process is linear and goal-directed. Memory and concentration: AOX3, grossly intact for the purposes of this session. Can spell "WORLD" backwards Judgment and insight: Fair STRENGTHS/WEAKNESSES: strength is that patient has no significant psychiatric history and is not endorsing any psychiatric pathology. Weakness is that patient has a history of substance use. INTELLECT: average IMPRESSIONS: Adjustment disorder, with depressed mood Opiate use disorder PLAN: -Patient is admitted under involuntary status to [facility] for stabilization of psychiatric symptoms and safety. Patient signed adult voluntary form and medication consent and is placed in patient's chart. Patient was converted to Adult Formal Voluntary. -Medications : No psychotropic medications are warranted. -Ativan and Geodon PRN for agitation/aggression -Patient was counselled on substance abuse and desired to cut back on use -Patient was informed of the risks, benefits and side effects of the medication and patient verbally consented to taking the medications. Patient signed med consent form and was placed in chart. -Internal Medicine consult to perform medical evaluation and physical. -NRT - nicotine patch -SW on board for discharge planning. Encourage patient to participate in groups to work on coping skills.
--- NOTE | 2020-06-30 12:49 | P.DS ---
Providers Date of admission: 06/29/20 16:06 Expected date of discharge: 06/30/20 Attending physician: Mahamed Murray MD Consults: 06/29/20 16:11 Consult Physician Routine Consulting Provider: Carmencita Gonzales Consult Reason/Comments: H&P and medical Do you want consulting provider notified?: Yes 06/29/20 18:06 Consult Physician Routine Consulting Provider: Javier Mckeon Consult Reason/Comments: Right wrist pain/recent ORIF 3 weeks ago. Do you want consulting provider notified?: Yes Primary care physician: Leroy Castorena - Discharge Diagnosis(es) (1) Adjustment disorder with depressed mood Current Visit: Yes Status: Acute Priority: High (2) Opiate use Current Visit: Yes Status: Acute Priority: Medium Hospital Course: Admission HPI: Patient is a 25-year-old, single, unemployed, male with a significant history of ADHD and drug use admitted for suicidal ideation. Patient presented to the hospital in 06/28/2020 after expressing significant right hand pain. Patient reports that for the last 2 days his hand has been bothering him significantly. He reports that he has increased his alcohol use and is engaged in [id number] Tylenol use to help deal with his pain. He reports that when he came to [place], his friend was driving him to the hospital and offered him some heroin. Patient states that he took to heroin because the pain in his right hand was unbearable. He does not recall endorsing any suicidal ideation or intention. Currently he is not endorsing any significant symptoms of depression. He denies any hopelessness, helplessness, anhedonia, or suicidal or homicidal ideation, intention, and/or plan. He reports no prior attempts at suicide. He reports that the prior overdose that occurred was him taking multiple acetaminophen pills along with alcohol to help with his right hand pain as well. Prior to him breaking his hand, the patient reports no history of any overdoses. In regards other mood symptoms, the patient denies any history of nicolas. He denies any increased goal-directed activity, impulsivity, racing thoughts, or pressured speech. He denies any history of auditory or visualizations. He denies any delusions or paranoia. In regards to substance use, the patient reports experimenting on "Pretty much every drug in the past." He reports heavy alcohol use as well. He expresses that he realizes that he has to cut down on his substance use, which also includes the use of [id number] pain medication. He reports that he has never broken his hand before and this provider discussed tempering his expectations on being pain free. Hospital course: Upon admission to the unit patient was initially calm and cooperative and not endorsing any significant psychiatric pathology. Patient was directable and agreeable to commence treatment. Patient got along well with other patients on the unit and followed unit protocol. Patient was not started on any medications as there is no psychiatric pathology to treat at this time. The patient was petitioned and certified but converted to Adult Formal Voluntary. Patient was future-oriented and reporting no significant symptoms of depression. Patient is to be discharged after the initial psychiatric evaluation. Patient denied any suicidal or homicidal ideations intent or plan denied any auditory or visual hallucinations. Patient endorsed wanting to live for his health and family. The patient denied any access to guns or weapons. Patient denied any paranoia and did not endorse any delusions. Patient does have a significant history of substance abuse however was counseled on abstaining from all substances including alcohol and marijuana. Patient was offered however declined inpatient substance-abuse rehab. Patient was also counseled on the medications and need for regular compliance and was encouraged to follow-up with their outpatient appointment for mental health and also for primary care. Prior to discharge a family meeting will be arranged by drug abuse social worker to answer any questions and ensure safety upon discharge. Mental status exam: General Appearance: Patient appears to be stated age is alert, pleasant, and cooperative. Patient is in no acute distress and has fair hygiene and grooming Behavior: Patient is calmly seated without any agitated behavior. Speech: Patient's speech is fluent and nonpressured. Mood/Affect: Patient reports their mood is "doing fine", affect is congruent and euthymic. Suicidality/Homicidality: Patient denies having any suicidal or homicidal ideation intent or plan. Perceptions: Patient denies any auditory or visual hallucinations. Though content/process: There is no evidence of any delusional thought content and thought process is linear and goal-directed. Memory and concentration: AOX3, grossly intact for the purposes of this session. Can spell "WORLD" backwards correctly. Judgment and insight: Improved with guarded prognosis Impression: Adjustment disorder, with depressed mood Opiate use disorder Plan: -Continue with discharge today as patient has improved and stabilized psychiatrically and is not currently an imminent threat to himself and/or others. Patient will remain at chronically elevated risk for harm to self and/or others due to his history of polysubstance abuse. -Continue medications: No psychotropic medications were initiated. -Patient was counseled on the need for medication compliance and appropriate follow-up at mental health and also primary care for medical issues. Patient verbalized understanding and agreed. -Social work to arrange for and conduct family meeting to ensure safety upon discharge and answer any questions/concerns. Social work also to arrange for patients follow up appointments for outpatient follow-up. -Patient counseled on abstaining from recreational drugs and marijuana and alcohol. Was informed/educated on the adverse effects on their physical and mental health. Patient verbally agreed and understood. Patient was offered substance abuse treatment however declined at this time. -Patient was instructed to return to the hospital or seek immediate medical care if their psychiatric or medical symptoms do worsen or reoccur. Vital Signs Temp 98.7 F 06/30/20 01:12 Pulse 114 H 06/30/20 01:12 Resp 18 06/30/20 01:12 BP 128/95 06/30/20 01:12 Pulse Ox 98 06/29/20 16:26 Intake & Output 06/29/20 06/30/20 06/30/20 18:59 06:59 18:59 Weight 72.773 kg Laboratory Results WBC 13.7 k/uL (3.8-10.6) H 06/28/20 20:45 RBC 4.21 m/uL (4.30-5.90) L 06/28/20 20:45 Hgb 14.3 gm/dL (13.0-17.5) 06/28/20 20:45 Hct 41.4 % (39.0-53.0) 06/28/20 20:45 MCV 98.4 fL (80.0-100.0) 06/28/20 20:45 MCH 34.0 pg (25.0-35.0) 06/28/20 20:45 MCHC 34.5 g/dL (31.0-37.0) 06/28/20 20:45 RDW 12.2 % (11.5-15.5) 06/28/20 20:45 Plt Count 255 k/uL (150-450) 06/28/20 20:45 Neutrophils % 68 % 06/28/20 20:45 Lymphocytes % 24 % 06/28/20 20:45 Monocytes % 5 % 06/28/20 20:45 Eosinophils % 1 % 06/28/20 20:45 Basophils % 1 % 06/28/20 20:45 Neutrophils # 9.3 k/uL (1.3-7.7) H 06/28/20 20:45 Lymphocytes # 3.3 k/uL (1.0-4.8) 06/28/20 20:45 Monocytes # 0.7 k/uL (0-1.0) 06/28/20 20:45 Eosinophils # 0.1 k/uL (0-0.7) 06/28/20 20:45 Basophils # 0.1 k/uL (0-0.2) 06/28/20 20:45 PT 9.8 sec (9.0-12.0) 06/28/20 20:45 INR 0.9 (<1.2) 06/28/20 20:45 Sodium 148 mmol/L (137-145) H 06/28/20 20:45 Potassium 4.4 mmol/L (3.5-5.1) 06/28/20 20:45 Chloride 114 mmol/L (98-107) H 06/28/20 20:45 Carbon Dioxide 23 mmol/L (22-30) 06/28/20 20:45 Anion Gap 11 mmol/L 06/28/20 20:45 BUN 15 mg/dL (9-20) 06/28/20 20:45 Creatinine 0.85 mg/dL (0.66-1.25) 06/28/20 20:45 Est GFR (CKD-EPI)AfAm >90 (>60 ml/min/1.73 sqM) 06/28/20 20:45 Est GFR (CKD-EPI)NonAf >90 (>60 ml/min/1.73 sqM) 06/28/20 20:45 Glucose 101 mg/dL (74-99) H 06/28/20 20:45 Calcium 9.0 mg/dL (8.4-10.2) 06/28/20 20:45 Phosphorus 4.4 mg/dL (2.5-4.5) 06/28/20 20:45 Magnesium 2.2 mg/dL (1.6-2.3) 06/28/20 20:45 Total Bilirubin 0.3 mg/dL (0.2-1.3) 06/28/20 20:45 AST 48 U/L (17-59) 06/28/20 20:45 ALT 256 U/L (4-49) H 06/28/20 20:45 Alkaline Phosphatase 72 U/L (38-126) 06/28/20 20:45 Creatine Kinase 135 U/L (55-170) 06/28/20 20:45 Total Protein 7.1 g/dL (6.3-8.2) 06/28/20 20:45 Albumin 4.5 g/dL (3.5-5.0) 06/28/20 20:45 Triglycerides 130 mg/dL (<150) 06/30/20 09:33 Cholesterol 124 mg/dL (<200) 06/30/20 09:33 LDL Cholesterol, Calc 49 mg/dL (0-99) 06/30/20 09:33 HDL Cholesterol 49 mg/dL (40-60) 06/30/20 09:33 Lipase 104 U/L (23-300) 06/28/20 20:45 TSH 0.556 mIU/L (0.465-4.680) 06/30/20 09:33 Salicylates <1.0 mg/dL 06/28/20 20:45 Urine Opiates Screen Not Detected (NotDetected) 06/28/20 20:45 Ur Oxycodone Screen Not Detected (NotDetected) 06/28/20 20:45 Urine Methadone Screen Not Detected (NotDetected) 06/28/20 20:45 Ur Propoxyphene Screen Not Detected (NotDetected) 06/28/20 20:45 Acetaminophen <10.0 ug/mL 06/28/20 20:45 Ur Barbiturates Screen Not Detected (NotDetected) 06/28/20 20:45 U Tricyclic Antidepress Not Detected (NotDetected) 06/28/20 20:45 Ur Phencyclidine Scrn Not Detected (NotDetected) 06/28/20 20:45 Ur Amphetamines Screen Detected (NotDetected) H 06/28/20 20:45 U Methamphetamines Scrn Not Detected (NotDetected) 06/28/20 20:45 U Benzodiazepines Scrn Detected (NotDetected) H 06/28/20 20:45 Urine Cocaine Screen Not Detected (NotDetected) 06/28/20 20:45 U Marijuana (THC) Screen Not Detected (NotDetected) 06/28/20 20:45 Serum Alcohol 246 mg/dL H* 06/28/20 20:45 Allergies Allergy/AdvReac Type Severity Reaction Status Date / Time No Known Allergies Allergy Verified 06/29/20 16:38 Patient Condition at Discharge: Stable Plan - Discharge Summary Discharge Rx Participant: Yes New Discharge Prescriptions: No Action No Known Home Medications Discharge Medication List No Known Home Medications 06/29/20 [History] Follow up Appointment(s)/Referral(s[facility] - 07/06/20 12:30 pm (Katie Chang) None,Stated [REFERRING] - 1-2 days Activity/Diet/Wound Care/Special Instructions: Activity and diet as tolerated. Avoid the use of street drugs and alcohol. Take all medications as prescribed. When you are in need of refills on your medications please contact your medical provider and/or outpatient psychiatrist to have this done. Please go to scheduled outpatient appointment for aftercare treatment. If symptoms return or become worse, call the crisis line at and/or go to the nearest emergency room for evaluation. Discharge Disposition: HOME SELF-CARE
[2020-06-30 14:36] VITALS: TEMP 97.9
[2020-06-30 16:16] LABS: Hemoglobin A1C 4.8 % (4.0-6.0)
== END 2020-06-30 13:16 | disposition home or self-care (01) | DRG 881 ==
LOC: EC 19:09 → 3MHU 06-29 16:06
PROVIDERS: ADMIT Psychiatry & Neurology Psychiatry; ATTEND Psychiatry & Neurology Psychiatry
DX: F43.21 Adjustment disorder with depressed mood (principal); T84.84XA Pain due to internal orthopedic prosthetic devices, implants and grafts, initial encounter; M79.641 Pain in right hand; F11.90 Opioid use, unspecified, uncomplicated; F10.10 Alcohol abuse, uncomplicated; F17.200 Nicotine dependence, unspecified, uncomplicated; F90.9 Attention-deficit hyperactivity disorder, unspecified type; M25.531 Pain in right wrist; Z56.0 Unemployment, unspecified; Y83.8 Other surgical procedures as the cause of abnormal reaction of the patient, or of later complication, without mention of misadventure at the time of the procedure
CPT/HCPCS: 36415; 71046; 80053; 80061; 80306; 80320; 80329; 82075; 82550; 83036; 83520; 83690; 83735; 84100; 84443; 85025; 85610; 96361; 96372; 96374; 96375; 99291

== ENCOUNTER 2021-02-12 17:49 | Inpatient (IN) | payer OTHER ==
[2021-02-12] MEDS ORDERED: KETAMINE 10 MG/ML 20 ML VIAL IV ONE (17:59)
[2021-02-12 18:00] LABS: Glucose,Whole Blood 112 mg/dL (75-99)
--- NOTE | 2021-02-12 18:03 | ED ---
General Adult HPI - General Stated complaint: Overdose Time Seen by Provider: 02/12/21 17:50 - History of Present Illness Initial comments: Dictation was produced using [employer] dictation software. please excuse any grammatical, word or spelling errors. Chief Complaint: 30-year-old male brought in for altered mental status History of Present Illness: 30-year-old male who has past medical history of illicit drug abuse. Is found to be minimally responsive and lethargic at home. According to EMS patient is trying to quit drugs. Supposedly there is concern that the patient uses heroin today. He was found at home by family members. [place] and vomited. The ROS documented in this emergency department record has been reviewed and confirmed by me. Those systems with pertinent positive or negative responses have been documented in the HPI. All other systems are other negative and/or noncontributory. PHYSICAL EXAM: General Impression: Eyes open, making insensible noises, and cooperative, disheveled HEENT: Normocephalic atraumatic, extra-ocular movements intact, pupils equal and reactive to light bilaterally, dry mucous membranes Cardiovascular: Heart regular rate and rhythm Chest: no retractions, no tachypnea Abdomen: abdomen soft, non-tender, non-distended, no organomegaly Musculoskeletal: Pulses present and equal in all extremities, no peripheral edema Motor: no focal deficits noted Neurological: CN II-XII grossly intact Skin: Intact with no visualized rashes, nondiaphoretic ED course: 30 y Old male presents emergency department for altered mental status. Patient allegedly has a history of illicit drug use. Clinical presentation not specific for any toxidrome. Patient is uncooperative. Patient will be sedated. he was given IM ketamine for sedation. Laboratory evaluation was obtained. Leukocytosis of 20.0, macrocytosis 11.7. Metabolic panel shows potassium 5.5, elevated renal markers with a creatinine 1.58, BUN of 25. Patient has hepatitis with AST of 2788 and ALT of 2078. Salicylates negative, acetaminophen negative, serum alcohol is negative. Urine drug screen positive for benzodiazepines. There is still some pending labs. Case is discussed with poison control who recommends acetylcysteine for possible hepatitis secondary to acetaminophen toxicity. osmolar gap of 3.0. No concern for toxic alcohol ingestion.Computed tomography scan of the brain shows no acute processes. At this point there is no obvious cause of patient's symptoms. Case discussed with [facility] hospitalist group was willing to accept patients care. EKG interpretation: Ventricular rate 1:15, sinus tachycardia,. Interval 124, QRS 70, QTc 445. No OK prolongation, no QTC prolongation, no ST or T-wave changes noted. Overall, this EKG is unremarkable - Related Data Home Medications Medication Instructions Recorded Confirmed No Known Home Medications 02/12/21 02/12/21 Allergies Allergy/AdvReac Type Severity Reaction Status Date / Time No Known Allergies Allergy Verified 02/12/21 19:33 Review of Systems ROS Statement: Those systems with pertinent positive or pertinent negative responses have been documented in the HPI. ROS Other: All systems not noted in ROS Statement are negative. Course Vital Signs 02/12/21 02/12/21 02/12/21 18:09 19:00 19:51 Temperature 98.2 F 98.0 F Pulse Rate 101 H 92 101 H Respiratory 18 18 20 Rate Blood Pressure 155/67 O2 Sat by Pulse 99 96 100 Oximetry 02/13/21 02/13/21 02/13/21 02:15 06:45 09:49 Temperature 97.7 F Pulse Rate 79 70 70 Respiratory 18 16 18 Rate Blood Pressure 142/86 120/88 136/88 O2 Sat by Pulse 99 100 100 Oximetry Procedures - Restraint - Face to Face Restraint Occurrence 1 Patient's Immediate Situation: Endangers self safety, Endangers others' safety, Endangers staff safety, Violent behavior Patient's Reaction to the Intervention: Uncooperative, Hostile Patient's Medical & Behavioral Condition: Confused, Agitated Need to Continue or Terminate Restraint or Seclusion: Continue Face to Face Eval of Restraint Date: 02/12/21 Face to Face Eval of Restraint Time: 18:01 Medical Decision Making - Lab Data Result diagrams: 02/13/21 06:34 02/13/21 06:34 Lab Results 02/12/21 02/12/21 02/12/21 Range/Units 17:59 18:15 18:15 WBC 20.0 H (3.8-10.6) k/uL RBC 4.26 L (4.30-5.90) m/uL Hgb 14.9 (13.0-17.5) gm/dL Hct 43.3 (39.0-53.0) % MCV 101.7 H (80.0-100.0) fL MCH 35.0 (25.0-35.0) pg MCHC 34.4 (31.0-37.0) g/dL RDW 12.5 (11.5-15.5) % Plt Count 140 L (150-450) k/uL MPV 8.1 Neutrophils % 88 % Lymphocytes % 6 % Monocytes % 4 % Eosinophils % 0 % Basophils % 0 % Neutrophils # 17.6 H (1.3-7.7) k/uL Lymphocytes # 1.3 (1.0-4.8) k/uL Monocytes # 0.9 (0-1.0) k/uL Eosinophils # 0.1 (0-0.7) k/uL Basophils # 0.0 (0-0.2) k/uL Sodium 142 (137-145) mmol/L Potassium 5.5 H (3.5-5.1) mmol/L Chloride 100 (98-107) mmol/L Carbon Dioxide 22 (22-30) mmol/L Anion Gap 20 mmol/L BUN 25 H (9-20) mg/dL Creatinine 1.58 H (0.66-1.25) mg/dL Est GFR (CKD-EPI)AfAm 68 (>60 ml/min/1.73 sqM) Est GFR (CKD-EPI)NonAf 58 (>60 ml/min/1.73 sqM) Glucose 136 H (74-99) mg/dL POC Glucose (mg/dL) 112 H (75-99) mg/dL POC Glu Flanging Roll Operator ID Gem Gonzalez Osmolality 303 H (280-301) mosm/kg Calcium 10.4 H (8.4-10.2) mg/dL Total Bilirubin 0.6 (0.2-1.3) mg/dL AST 2788 H (17-59) U/L ALT 2078 H (4-49) U/L Alkaline Phosphatase 67 (38-126) U/L Creatine Kinase (55-170) U/L Total Protein 7.1 (6.3-8.2) g/dL Albumin 5.1 H (3.5-5.0) g/dL Salicylates <1.0 mg/dL Urine Opiates Screen (NotDetected) Ur Oxycodone Screen (NotDetected) Urine Methadone Screen (NotDetected) Ur Propoxyphene Screen (NotDetected) Acetaminophen <10.0 ug/mL Ur Barbiturates Screen (NotDetected) U Tricyclic Antidepress (NotDetected) Ur Phencyclidine Scrn (NotDetected) Ur Amphetamines Screen (NotDetected) U Methamphetamines Scrn (NotDetected) U Benzodiazepines Scrn (NotDetected) Urine Cocaine Screen (NotDetected) U Marijuana (THC) Screen (NotDetected) Serum Alcohol <10 mg/dL 02/12/21 02/12/21 Range/Units 18:15 18:15 WBC (3.8-10.6) k/uL RBC (4.30-5.90) m/uL Hgb (13.0-17.5) gm/dL Hct (39.0-53.0) % MCV (80.0-100.0) fL MCH (25.0-35.0) pg MCHC (31.0-37.0) g/dL RDW (11.5-15.5) % Plt Count (150-450) k/uL MPV Neutrophils % % Lymphocytes % % Monocytes % % Eosinophils % % Basophils % % Neutrophils # (1.3-7.7) k/uL Lymphocytes # (1.0-4.8) k/uL Monocytes # (0-1.0) k/uL Eosinophils # (0-0.7) k/uL Basophils # (0-0.2) k/uL Sodium (137-145) mmol/L Potassium (3.5-5.1) mmol/L Chloride (98-107) mmol/L Carbon Dioxide (22-30) mmol/L Anion Gap mmol/L BUN (9-20) mg/dL Creatinine (0.66-1.25) mg/dL Est GFR (CKD-EPI)AfAm (>60 ml/min/1.73 sqM) Est GFR (CKD-EPI)NonAf (>60 ml/min/1.73 sqM) Glucose (74-99) mg/dL POC Glucose (mg/dL) (75-99) mg/dL POC Glu Flanging Roll Operator ID Osmolality (280-301) mosm/kg Calcium (8.4-10.2) mg/dL Total Bilirubin (0.2-1.3) mg/dL AST (17-59) U/L ALT (4-49) U/L Alkaline Phosphatase (38-126) U/L Creatine Kinase 4252 H* (55-170) U/L Total Protein (6.3-8.2) g/dL Albumin (3.5-5.0) g/dL Salicylates mg/dL Urine Opiates Screen Not Detected (NotDetected) Ur Oxycodone Screen Not Detected (NotDetected) Urine Methadone Screen Not Detected (NotDetected) Ur Propoxyphene Screen Not Detected (NotDetected) Acetaminophen ug/mL Ur Barbiturates Screen Not Detected (NotDetected) U Tricyclic Antidepress Not Detected (NotDetected) Ur Phencyclidine Scrn Not Detected (NotDetected) Ur Amphetamines Screen Not Detected (NotDetected) U Methamphetamines Scrn Not Detected (NotDetected) U Benzodiazepines Scrn Detected H (NotDetected) Urine Cocaine Screen Not Detected (NotDetected) U Marijuana (THC) Screen Not Detected (NotDetected) Serum Alcohol mg/dL Critical Care Time Critical Care Time: Yes Total Critical Care Time: 33 Disposition Clinical Impression: Hepatitis, Acute encephalopathy, Rhabdomyolysis Disposition: ADMITTED IP TO THIS [facility] Condition: Critical
[2021-02-12 18:36] LABS: Amphetamine Screen,Urine Not Detected (NotDetected); Barbiturate Screen,Urine Not Detected (NotDetected); Benzodiazepines Screen,Urine Detected (NotDetected); Cocaine Screen,Urine Not Detected (NotDetected); Methadone Screen, Urine Not Detected (NotDetected); Opiate Screen,Urine Not Detected (NotDetected); Oxycodone Screen, Urine Not Detected (NotDetected); Phencyclidine Screen,Urine Not Detected (NotDetected); Tricyclic Antidepressant,Urine Not Detected (NotDetected); Urn Cannabinoid Scrn Not Detected (NotDetected)
[2021-02-12 18:40] LABS: Acetaminophen <10.0 ug/mL; African American GFR (CKD) 68 (>60 ml/min/1.73 sqM); Albumin 5.1 g/dL (3.5-5.0); Alcohol <10 mg/dL; Alkaline Phosphatase 67 U/L (38-126); Anion Gap 20 mmol/L; Blood Urea Nitrogen 25 mg/dL (9-20); Calcium 10.4 mg/dL (8.4-10.2); Carbon Dioxide 22 mmol/L (22-30); Chloride 100 mmol/L (98-107); Glucose 136 mg/dL (74-99); Non-African American GFR(CKD) 58 (>60 ml/min/1.73 sqM); Potassium 5.5 mmol/L (3.5-5.1); Salicylate <1.0 mg/dL; Sodium 142 mmol/L (137-145); Total Bilirubin 0.6 mg/dL (0.2-1.3); Total Protein 7.1 g/dL (6.3-8.2)
[2021-02-12 18:41] LABS: Basophils % (A) 0 %; Eosinophils # (A) 0.1 k/uL (0-0.7); Eosinophils % (A) 0 %; HCT 43.3 % (39.0-53.0); HGB 14.9 gm/dL (13.0-17.5); Lymphocytes # (A) 1.3 k/uL (1.0-4.8); Lymphocytes % (A) 6 %; MCHC 34.4 g/dL (31.0-37.0); MCV 101.7 fL (80.0-100.0); Mean Platelet Volume 8.1; Monocytes # (A) 0.9 k/uL (0-1.0); Monocytes % (A) 4 %; Neutrophils # (A) 17.6 k/uL (1.3-7.7); Neutrophils % (A) 88 %; Platelet Count 140 k/uL (150-450); RBC 4.26 m/uL (4.30-5.90); RDW 12.5 % (11.5-15.5)
[2021-02-12 18:47] LABS: ALT 2078 U/L (4-49)
[2021-02-12] MEDS ORDERED: SODIUM CHLORIDE 0.9% 1,000 ML IV STA (18:54)
[2021-02-12 19:29] LABS: AST 2788 U/L (17-59)
[2021-02-12] MEDS ORDERED: KETAMINE 10 MG/ML 20 ML VIAL IV STA (19:32)
[2021-02-12] MEDS ORDERED: ACETYLCYSTEINE 6,000 MG/30 ML VIAL PO ONE (19:49)
[2021-02-12] MEDS ORDERED: diphenhydrAMINE 50 MG/ML 1 ML VIAL IVP ONE (20:04)
[2021-02-12] MEDS ORDERED: ACETYLCYSTEINE IV 12,000 MG in DEXTROSE 5% IN WATER 200 ML IV ONE ×2 (20:04)
[2021-02-12] MEDS ORDERED: NALOXONE 0.4 MG/ML 1 ML VIAL IV PRN (20:16)
--- NOTE | 2021-02-12 20:32 | CT ---
EXAMINATION TYPE: CT brain wo con DATE OF EXAM: 02/12/2021 COMPARISON: 10/23/2013 HISTORY: ams CT DLP: 2282.4 mGycm Automated exposure control for dose reduction was used. Ventricles and sulci appear normal. There is no mass effect nor midline shift. There is no sign of in tracranial hemorrhage. Exam limited slightly by motion. Calvarium is intact. There is fluid level left maxillary sinus. IMPRESSION: No acute intracranial abnormality. Brain unchanged compared to old exam. There is improvement in left maxillary sinusitis compared to old exam.
[2021-02-12] MEDS: SODIUM CHLORIDE 0.9% 1,000 ML IV SCH (20:41)
[2021-02-12] MEDS ORDERED: SODIUM CHLORIDE 0.9% 1,000 ML with MVI, ADULT NO.4 WITH VIT K 10 ML, THIAMINE 100 MG, F... IV ONE ×4 (20:42)
[2021-02-12 20:59] LABS: Lactic Acid, Venous 3.5 mmol/L (0.7-2.0)
[2021-02-12] MEDS ORDERED: ACETYLCYSTEINE IV 4,000 MG in DEXTROSE 5% IN WATER 500 ML IV ONE ×2 (21:11)
--- NOTE | 2021-02-12 23:13 | XR ---
EXAMINATION TYPE: XR abdomen acute w cxr DATE OF EXAM: 02/12/2021 COMPARISON: NONE HISTORY: Possible overdose TECHNIQUE: 4 views FINDINGS: Heart and mediastinum are normal. Lungs are clear. Diaphragm is normal. Bowel gas pattern is normal. There is no sign of intestinal obstruction or pneumoperitoneum. Fecal pa ttern is normal. There are no pathologic calcifications over the kidneys. IMPRESSION: Nonacute abdomen. Normal chest.
[2021-02-12] MEDS: PANTOPRAZOLE 40 MG/10 ML VIAL IVP SCH (23:27)
[2021-02-12] MEDS: HEPARIN SODIUM,PORCINE/PF 5,000 UNIT/0.5 ML SYRINGE SQ SCH (23:27)
[2021-02-12] MEDS: PIPERACILLIN-TAZOBACTAM 3.375 GM in SODIUM CHLORIDE 0.9% 100 ML IVPB SCH (23:28)
[2021-02-12] MEDS ORDERED: LORazepam 2 MG/ML INJ IV STA (23:39)
[2021-02-13] MEDS ORDERED: ACETYLCYSTEINE IV ONE ×2 (01:11)
[2021-02-13] MEDS ORDERED: DEXTROSE 5% IV ONE ×2 (01:11)
[2021-02-13] MEDS ORDERED: WATER IV ONE ×2 (01:11)
[2021-02-13] MEDS: SODIUM CHLORIDE 0.9% 1,000 ML IV SCH ×4 (06:32→23:31)
--- NOTE | 2021-02-13 07:08 | HP ---
HISTORY AND PHYSICAL DATE OF SERVICE: 02/12/2021 CHIEF COMPLAINTS: Overdose and change in mental status. I am covering for Dr. Castorena. HISTORY OF PRESENT ILLNESS: This 25-year-old gentleman with a past history of apparent substance abuse, was found to be minimally responsive and lethargic at home and substance abuse was suspected and the family brought the patient to [facility]. The patient admitted for further evaluation and treatment. The patient also had features of hepatitis and serum ammonia is only 10 but creatine kinase 4252. The patient also had a history of IV drug abuse. ( ) cannot be taken. Most of the history is taken from my discussion with staff and review of the chart. A CT of the brain was also done which I reviewed personally, showed no evidence of any acute abnormality. There is no history of trauma. PAST MEDICAL HISTORY: History of substance abuse. Otherwise, a detailed history cannot be taken at this time. MEDICATIONS: The home medications are unknown. ALLERGIES: None. Family history and social history also could not be taken. PHYSICAL EXAMINATION: Patient is stuporous. Pulse is 101, blood pressure 150/60, respiration 20, temperature 98 degrees, pulse ox 100% on 5 L. HEENT: Conjunctivae normal. Oral mucosa moist. NECK: No jugular venous distention. No lymph node enlargement. CARDIOVASCULAR: S1, S2, muffled. No S3, no S4, RESPIRATORY: Diminished breath sounds at the bases. A few scattered rhonchi. ABDOMEN: Soft, nontender. LEGS: No edema, no swelling. NERVOUS SYSTEM: Higher functions mentioned earlier. Moves all four limbs. The patient is restrained for patient safety. LYMPHATICS: No lymph node in neck or axilla. SKIN: Possible IV lining ( ). JOINTS: No active deforming arthropathy. LABS: WBC 20, hemoglobin 14.9, sodium 140, potassium 5.5, creatinine is 1.58. UA is not available. LFTs are noted. AST is 277, ALT is 2078. ASSESSMENT: 1. Status post overdose and change in mental status, metabolic encephalopathy. 2. Possible acute hepatitis, possibly drug-induced or hepatitis C. 3. History of IV drug abuse. 4. Elevated plasma lactic acid secondary to sepsis. 5. Increased creatinine with possible acute renal with acute tubular necrosis. 6. Hyperkalemia. 7. Increased WBC. 8. Thrombocytopenia. 9. Increased elevated CK with possible rhabdomyolysis. RECOMMENDATION: In this 25-year-old gentleman who presented with multiple complex medical issues, we will monitor the patient closely, continue the current management, continue symptomatic treatment. I would recommend broad-spectrum IV antibiotics. Obtain cultures, UA with micro. Repeat labs. I would also recommend a chest x-ray, ultrasound of the abdomen to rule out possibility of acute hepatitis. Prognosis extremely guarded because of multiple complex medical issues. Further recommendations to follow. Social Work and Case Management to evaluate the substance abuse such issues once the patient is improved. See orders for further details. MMODL / IJN: [id number] /
[2021-02-13 07:17] LABS: Basophils % (A) 0 %; Eosinophils # (A) 0.2 k/uL (0-0.7); Eosinophils % (A) 1 %; HCT 40.1 % (39.0-53.0); HGB 13.9 gm/dL (13.0-17.5); Lymphocytes # (A) 1.5 k/uL (1.0-4.8); Lymphocytes % (A) 10 %; MCH 34.4 pg (25.0-35.0); MCHC 34.7 g/dL (31.0-37.0); MCV 99.2 fL (80.0-100.0); Monocytes # (A) 0.8 k/uL (0-1.0); Monocytes % (A) 5 %; Neutrophils # (A) 12.9 k/uL (1.3-7.7); Neutrophils % (A) 83 %; Platelet Count 140 k/uL (150-450); RBC 4.04 m/uL (4.30-5.90); RDW 12.6 % (11.5-15.5); WBC 15.5 k/uL (3.8-10.6)
[2021-02-13 07:40] LABS: African American GFR (CKD) >90 (>60 ml/min/1.73 sqM); Albumin 3.7 g/dL (3.5-5.0); Alkaline Phosphatase 50 U/L (38-126); Anion Gap 8 mmol/L; Blood Urea Nitrogen 25 mg/dL (9-20); Calcium 9.4 mg/dL (8.4-10.2); Carbon Dioxide 24 mmol/L (22-30); Chloride 107 mmol/L (98-107); Glucose 91 mg/dL (74-99); Lipase 96 U/L (23-300); Non-African American GFR(CKD) 79 (>60 ml/min/1.73 sqM); Potassium 3.8 mmol/L (3.5-5.1); Sodium 139 mmol/L (137-145); Total Bilirubin 0.5 mg/dL (0.2-1.3); Total Protein 5.9 g/dL (6.3-8.2)
[2021-02-13 08:09] LABS: ALT 1606 U/L (4-49)
[2021-02-13 08:29] LABS: AST 2033 U/L (17-59)
[2021-02-13] MEDS: PANTOPRAZOLE 40 MG/10 ML VIAL IVP SCH (09:51)
[2021-02-13] MEDS: PIPERACILLIN-TAZOBACTAM 3.375 GM in SODIUM CHLORIDE 0.9% 100 ML IVPB SCH ×3 (09:51→23:31)
[2021-02-13] MEDS: HEPARIN SODIUM,PORCINE/PF 5,000 UNIT/0.5 ML SYRINGE SQ SCH ×2 (09:51→23:30)
[2021-02-13 13:25] VITALS: TEMP 98.3
--- NOTE | 2021-02-13 14:03 | P.CON ---
Consult Note - . Consult date: 02/13/21 Assessment/Plan:: Clinical Problems: Metabolic encephalopathy, status post overdose with mental status changes, history of substance use disorder. Interim history: It medical record and attempted to interview the patient. He was lying in currently in the ED. He was obtunded but responsive. He could not explain the reason for this hospitalization. I spoke with the nurse reported that he has not been agitated and aggressive. His mental status is improved and that he is aware that he is in the hospital and is responding to his name. Mental status exam: He presented as disheveled and obtunded 24-year-old male. He did not make eye contact and was unable to concentrate or attend to the interview. Assessment: He has presentation is likely related to her overdose of drugs but I am unable to determine whether or not it was intentional. Plan: Psychiatry will follow. He will need one-to-one supervision while he is on the medicine unit. There is no indication for psychotropic medications at this time. We are unable to recommend a final disposition due to his mental status changes.
[2021-02-13 14:24] LABS: Hepatitis A Antibody IgM Non-Reactive (Non-Reactive); Hepatitis B Core IgM Non-Reactive (Non-Reactive); Hepatitis B Surface Antigen Non-Reactive (Non-Reactive); Hepatitis C IgG Antibody Non-Reactive (Non-Reactive)
--- NOTE | 2021-02-13 16:37 | PN ---
PROGRESS NOTE DATE OF SERVICE: 02/13/2021. I am covering for Dr. Castorena. HISTORY OF PRESENT ILLNESS: This 25-year-old gentleman who was admitted with possible drug overdosage and change in mental status has acute hepatitis as well. The sensorium has improved slightly, but the patient continues to be confused. Psychiatry has seen the patient and recommended to continue one-to-one supervision. CT scan of the brain did not show any acute abnormality. Acute abdominal series was within normal limits, but however the lactic acid elevated at 3.5, creatinine is 1.26. LFTs elevated, AST 2033 and ALT 1606. Lipase within normal limits. Creatinine kinase also elevated 4580. The drug screen is positive only for benzodiazepines. Alcohol less than 10. Hepatitis panel negative. COVID-19 is also negative. PAST MEDICAL HISTORY: Reviewed. REVIEW OF SYSTEMS: CARDIOVASCULAR SYSTEM: No angina or palpitations. RESPIRATION: As mentioned earlier. GI: As mentioned earlier. : No dysuria. NERVOUS SYSTEM: No numbness or weakness. CURRENT MEDICATIONS: Reviewed and include: per Poison Control recommendation, Narcan, Protonix, Zosyn IV. PHYSICAL EXAMINATION: Patient is alert, oriented x3. Pulse 77, blood pressure 120/90, respiration 18, temperature 98.3. Pulse ox 100 percent on room air. HEENT: Conjunctivae normal. NECK: No JVD. CARDIOVASCULAR: S1, S2. RESPIRATORY: Breath sounds diminished in the bases. A few scattered rhonchi. ABDOMEN: Soft, nontender. LEGS are no edema. No swelling. NERVOUS SYSTEM: No focal deficits. LABS: WBC 15.5, and sodium 139, potassium 3.8, creatinine is 1.26. AST and ALT noted. The cultures are still pending at this time. ASSESSMENT: 1. Status post overdose and change in mental status acute metabolic encephalopathy, multifactorial. 2. Possible acute hepatitis, possibly drug induced. 3. History of IV drug abuse. 4. Elevated plasma lactic acid secondary to sepsis possibly present on admission. 5. Increased creatinine with possible acute renal failure with acute tubular necrosis and dehydration, present on admission, prerenal factors. 6. Hyperkalemia. 7. Increased WBC. 8. Thrombocytopenia. 9. Increased CK, possible acute rhabdomyolysis, present on admission. 10.FULL CODE. RECOMMENDATIONS AND DISCUSSION: This 25-year-old gentleman who presented with multiple complex medical issues, we will monitor the patient closely, continue the current medications, management and symptomatic treatment. I would recommend continue with IV fluids and repeat labs in the morning. Otherwise, continue the empiric antibiotics until the cultures are finalized. Prognosis guarded because of multiple complex medical issues. Further recommendations to follow. Dr. Castorena will follow tomorrow and 2D echo has been taken, the results are pending. KATHLEEN / DOROTAN: [id number] / MTDD
[2021-02-13 16:52] LABS: Appearance,Urine Clear (Clear); Bilirubin,Urine Negative (Negative); Blood,Urine Small (Negative); Color,Urine Yellow; Glucose,Urine (UA) 1+ (Negative); Ketones,Urine 1+ (Negative); Leukocyte Esterase,Urine Negative (Negative); Nitrite,Urine Negative (Negative); PH, Urine 5.5 (5.0-8.0); Protein,Urine Trace (Negative); Specific Gravity,Urine 1.017 (1.001-1.035); Urobilinogen,Urine <2.0 mg/dL (<2.0); WBC,Urine 1 /hpf (0-5)
[2021-02-13 17:23] LABS: INR 1.3 (<1.2)
[2021-02-13 17:28] LABS: African American GFR (CKD) >90 (>60 ml/min/1.73 sqM); Albumin 3.7 g/dL (3.5-5.0); Alkaline Phosphatase 44 U/L (38-126); Anion Gap 7 mmol/L; Blood Urea Nitrogen 22 mg/dL (9-20); Calcium 9.1 mg/dL (8.4-10.2); Carbon Dioxide 23 mmol/L (22-30); Chloride 109 mmol/L (98-107); Glucose 116 mg/dL (74-99); Non-African American GFR(CKD) 89 (>60 ml/min/1.73 sqM); Potassium 3.6 mmol/L (3.5-5.1); Sodium 139 mmol/L (137-145); Total Bilirubin 0.5 mg/dL (0.2-1.3); Total Protein 5.9 g/dL (6.3-8.2)
[2021-02-13 18:13] LABS: ALT 1570 U/L (4-49); AST 1152 U/L (17-59)
--- NOTE | 2021-02-14 00:41 | US ---
EXAMINATION TYPE: US abdomen complete DATE OF EXAM: 02/14/2021 COMPARISON: NONE CLINICAL HISTORY: elevated LFT. EC patient with elevated LFT, altered mental status, overdose?; acute hepatitis; and ate 4hours ago. EXAM MEASUREMENTS: Liver Length: 16.6 cm Gallbladder Wall: 0.2 cm CBD: 0.4 cm Spleen: 11.2 cm Right Kidney: 11.1 x 6.4 x 4.7 cm Left Kidney: 11.5 x 5.7 x 6.7 cm Pancreas: tail obscured by bowel gas Liver: wnl, no masses seen Gallbladder: wnl Evidence for sonographic Hankins's sign: no CBD: wnl Spleen: wnl Right Kidney: No hydronephrosis or masses seen Left Kidney: No hydronephrosis or masses seen Upper IVC: wnl Abd Aorta: wnl There is no free fluid. Impression Negative exam. No gallstones or dilated ducts.
--- NOTE | 2021-02-14 02:52 | CONS ---
CONSULTATION DATE OF SERVICE: 02/13/2021. REASON FOR CONSULTATION: Sepsis. HISTORY OF PRESENT ILLNESS: The patient is a 25-year-old male with past medical history significant for IV drug abuse. The patient was found to be unresponsive and lethargic at home. Apparently the patient has used IV ( ) the day the patient was brought into the hospital. The patient was found at home curled over and vomited. The patient was subsequently brought into the hospital. On arrival to the ER, the patient was afebrile and no fever has been recorded since then. The patient did urine drug screen was positive for benzo and ( ). Tylenol and serum alcohol was normal. The patient had a white count of 20,000, repeat is down to 15.5. The patient did have mildly elevated kidney function. Liver enzymes are elevated. Lipase was normal. Urine is negative. Saini PCR negative. Hepatitis panel is negative. Acute abdominal series was negative. The patient has been treated with Zosyn. Infectious Disease was consulted for further management. Most of the information has been obtained ( ) nursing staff and the patient is currently lethargic and unable to provide any history. REVIEW OF SYSTEMS: Positive points have been mentioned in HPI, review completed could not be obtained because of mental status. PAST MEDICAL HISTORY: IV drug use. PAST SURGICAL HISTORY: No major surgery. SOCIAL HISTORY: Positive for drug use. No history of smoking. No drinking. FAMILY HISTORY: No pertinent findings noticed. ALLERGIES: No known drug allergies. MEDICATIONS: The patient is currently on heparin, Theragran, Narcan, Protonix, Zosyn and IV fluid. PHYSICAL EXAMINATION: Blood pressure is with a pulse of 80, temperature of 98, he is 97% on room air. Description: Is a middle-aged male lying in bed, in no distress. No tachypnea or accessory muscles of respiration use. HEENT: Examination shows pallor no pallor or scleral icterus. Oral mucous membrane is dry. Neck: Trachea central. Lungs: Unlabored breathing, decreased breath sounds. No wheeze or crackle. Heart: S1, S2. Regular rate and rhythm. Abdomen: Soft, no tenderness no rigidity. Extremities: No edema, no swelling. Neurologic: The patient is lethargic. No nuchal rigidity. LABS: Hemoglobin is 13.1, 15.5, BUN of 22.1, creatinine 1.15. Liver enzymes are minimally elevated but trending down. DIAGNOSTIC IMPRESSION AND PLAN: Patient admitted to the hospital with mental status changes. This patient did have elevated white count, but no fever. The patient did not look toxic. Did have elevated liver enzymes with initial concern for possible Tylenol toxicity. However, his Tylenol level was normal. Other hepatocellular disease needs to be ruled out. Hepatitis panel is negative. PLAN: 1. We will obtain ultrasound of the liver and gallbladder area. 2. Continue with Zosyn. 3. The mentation remains to be and issue. May benefit from an LP. 4. We will follow on clinical condition and further adjust medication if needed. Thank you for this consultation. Will follow this patient with you. MMODL / IJN: [id number] /
[2021-02-14 05:35] LABS: Basophils % (A) 0 %; Eosinophils # (A) 0.1 k/uL (0-0.7); Eosinophils % (A) 1 %; HCT 36.3 % (39.0-53.0); HGB 12.9 gm/dL (13.0-17.5); Lymphocytes # (A) 1.5 k/uL (1.0-4.8); Lymphocytes % (A) 17 %; MCHC 35.7 g/dL (31.0-37.0); MCV 98.2 fL (80.0-100.0); Mean Platelet Volume 8.2; Monocytes # (A) 0.6 k/uL (0-1.0); Monocytes % (A) 7 %; Neutrophils # (A) 6.5 k/uL (1.3-7.7); Neutrophils % (A) 73 %; Platelet Count 122 k/uL (150-450); RDW 12.3 % (11.5-15.5); WBC 8.9 k/uL (3.8-10.6)
[2021-02-14] MEDS: SODIUM CHLORIDE 0.9% 1,000 ML IV SCH (06:45)
[2021-02-14] MEDS: PIPERACILLIN-TAZOBACTAM 3.375 GM in SODIUM CHLORIDE 0.9% 100 ML IVPB SCH (08:00)
[2021-02-14] MEDS: HEPARIN SODIUM,PORCINE/PF 5,000 UNIT/0.5 ML SYRINGE SQ SCH (08:00)
[2021-02-14] MEDS: PANTOPRAZOLE 40 MG/10 ML VIAL IVP SCH (08:01)
[2021-02-14 08:08] VITALS: RESP 18
[2021-02-14] MEDS ORDERED: WATER IV ONE ×2 (10:15)
[2021-02-14] MEDS ORDERED: DEXTROSE 5% IV ONE ×2 (10:15)
[2021-02-14] MEDS ORDERED: ACETYLCYSTEINE IV ONE ×2 (10:15)
[2021-02-14] MEDS ORDERED: MULTIVITAMINS, THERA 1 EACH TAB PO SCH (12:00)
[2021-02-14] MEDS ORDERED: NICOTINE 21MG/24HR PATCH TRANSDERM SCH (12:30)
--- NOTE | 2021-02-14 13:18 | HP ---
HISTORY AND PHYSICAL CHIEF COMPLAINT: Mental status changes. HISTORY OF PRESENT ILLNESS: This is the first known admission for this 25-year-old white male. He apparently was found lying in somebody's yard. He was incoherent. He has a history of substance abuse. He is unable to give any history. He had a drug screen which demonstrated benzodiazepines. He had a marked elevated liver enzymes with an AST of 2788 and an ALT of 2078. There is no other history available. REVIEW OF SYSTEMS: Review of systems cannot be obtained. Past medical history, family history and personal and social histories could not be obtained. PHYSICAL EXAMINATION: Blood pressure 142/86 with pulse 79, regular, respirations of 18. He is afebrile. His pulse ox 99. He appeared to be well developed, well nourished, and lethargic. HEAD, ears, eyes, nose, mouth and throat were normal. CHEST is clear. CARDIAC exam demonstrates sinus rhythm with a slight tachycardia. ABDOMEN is soft and no masses. EXTREMITIES are normal. NEUROLOGICALLY: He was lethargic, confused and inappropriate. ASSESSMENT: He is admitted to the hospital with diagnoses: 1. Mental status changes. 2. Probable drug ingestion, overdose or other form of utilization of chemical, chemicals or drugs. PLAN: 1. Bedrest. 2. IV fluids. 3. Suicide precautions. 4. Psych consult. MMODL / IJN: [id number] /
--- NOTE | 2021-02-14 13:25 | PN ---
PROGRESS NOTE DATE OF SERVICE: 02/14/2021. CHIEF COMPLAINT: Mental status changes and substance abuse. HISTORY OF PRESENT ILLNESS: This gentleman remains quite lethargic and inappropriate. He cannot recall how he got to the hospital nor why. PHYSICAL EXAMINATION: His vital signs are normal. Chest is clear. Cardiac exam is normal. IMPRESSION: Mental status changes, probably due to substance use. PLAN: Continue to monitor neurologically and psychiatrically. Continue with sitter. He will be moved to [facility] once he is cleared medically. MMODL / IJN: [id number] /
--- NOTE | 2021-02-14 13:29 | P.CON ---
Consult Note - . Consult date: 02/14/21 Assessment/Plan:: Clinical Problems: Metabolic encephalopathy improving, status post overdose with mental status changes, history of substance use disorder Interim history: I reviewed the medical record and attempted to interview the patient. He was alert and oriented to person and place. However, he was uncooperative and refused to answer questions. He responded to most questions with "I don't remember" or "I don't know." Therefore was unable to obtain a comprehensive history of present illness. He alleges that he has no recollection of the events that transpired prior to his hospitalization. He stated that he had a "bad reaction" to a medication. He claims he does not know the name of the medication he took or whether the medication was prescribed to him or belonged to another person. When I asked if he has ever had "bad reaction" to a medication and/or drugs before he replied "maybe, I don't remember for sure." I asked about a history of substance use and substance use problems he replied "maybe." He would not talk about drugs of abuse and when I listed the names of different drugs of abuse (heroin, or opiate pain medications, cocaine, methamphetamine, hallucinogens etc.) He replied "sometimes." She denied a history of psychiatric hospitalizations for mental health treatment. He would not answer questions about a history of substance abuse treatment. He would not provide information about his social history. He "doesn't remember" if he is employed and he believes that he lives with his girlfriend. Mental status exam: He presented as a casually groomed 25-year-old male who was evasive and uncooperative. He tried to avoid eye contact and avoid answering questions. He had psychomotor slowing but no abnormal involuntary movements. His speech was not spontaneous but was not dysarthric risperidone. His affect was stable. He denied suicidal ideation or wishes. He denied feeling hopeless, helpless or worthless. He did not express ideas reference, paranoid ideation or delusions. His thinking was concrete. Associations were coherent, logical and goal directed. He did not appear to responding to internal stimuli. Assessment: He has a primary substance abuse problem. I suspect that he unintentionally overdosed on drugs of abuse and that his overdose was not a suicide attempt. Plan: There is no indication for transfer to the psychiatric unit. There is no indication to continue one-to-one supervision. Refer for substance abuse treatment prior to discharge. Take for this consult. Psychiatry will sign off on the case.
[2021-02-14 13:39] VITALS: BP 127/76; PULSE 89
--- NOTE | 2021-02-15 08:00 | ECHOF ---
Referral Reason:ENDOCARDITIS MEASUREMENTS -------- HEIGHT: 177.8 cm WEIGHT: 79.4 kg BP: RVIDd: 2.6 cm (< 3.3) IVSd: 0.9 cm (0.6 - 1.1) LVIDd: 4.5 cm (3.9 - 5.3) LVPWd: 0.9 cm (0.6 - 1.1) IVSs: 1.3 cm LVIDs: 3.4 cm LVPWs: 1.6 cm Ao Diam: 4.1 cm (2.0 - 3.7) AV Cusp: 1.5 cm (1.5 - 2.6) LA Diam: 2.6 cm (2.7 - 3.8) MV EXCURSION: 25.510 mm (> 18.000) MV EF SLOPE: 230 mm/s (70 - 150) EPSS: 0.8 cm MV E Rodrigo: 0.63 m/s MV DecT: 301 ms MV A Rodrigo: 0.41 m/s MV E/A Ratio: 1.52 RAP: 5.00 mmHg RVSP: 23.87 mmHg FINDINGS -------- This was a technically adequate study. The left ventricular size is normal. Left ventricular wall thickness is normal. Overall left vent ricular systolic function is low-normal with, an EF between 50 - 55 %. Septal wall motion is delaye d, and consistent with conduction delay/bundle branch block. The right ventricle is normal in size. The left atrial size is normal. The right atrial size is normal. The aortic valve is trileaflet and appears structurally normal. The mitral valve is normal. There is trace mitral regurgitation. Cannot exclude mitral valve prol apse. The tricuspid valve appears structurally normal. Mild tricuspid regurgitation present. Right vent ricular systolic pressure is normal at < 35 mmHg. There is no pulmonic regurgitation present. The aortic root is dilated measuring 4.1 cm. Normal inferior vena cava with normal inspiratory collapse consistent with estimated right atrial pre ssure of 5 mmHg. There is no pericardial effusion. CONCLUSIONS -------- 1. The left ventricular size is normal. 2. Left ventricular wall thickness is normal. 3. Overall left ventricular systolic function is low-normal with, an EF between 50 - 55 %. 4. Septal wall motion is delayed, and consistent with conduction delay/bundle branch block. 5. There is trace mitral regurgitation. 6. Cannot exclude mitral valve prolapse. 7. Mild tricuspid regurgitation present. 8. The aortic root is dilated measuring 4.1 cm 9. There is no pericardial effusion. [employer]: Shana Gimenez RDCS
--- NOTE | 2021-02-15 22:49 | DS ---
DISCHARGE SUMMARY CHIEF COMPLAINT: Mental status changes, lethargy, confusion, and drug ingestion overdose. HISTORY OF PRESENT ILLNESS AND PHYSICAL EXAMINATION: Details of this man's history and physical can be found in the initial workup. LABORATORY STUDIES: While he was in the hospital, he had laboratory studies, details of which can be found in the laboratory section of his chart. COURSE IN THE HOSPITAL: After admission, he was maintained in the emergency room under suicide watch. He remained very lethargic and confused for 48 hours. He then became more lucid and the plan was that he would go to the floor and be evaluated by Psychiatry, but he signed himself out AGAINST MEDICAL ADVICE on February 14. FINAL DIAGNOSES: 1. Mental status changes with lethargy and confusion. 2. History of substance abuse. OPERATIONS: None. CONSULTATION: Psychiatry. He is improved. MMODL / IJN: [id number] /
--- NOTE | 2021-03-04 08:46 | CDI ---
Documentation Clarification Form Date: 03/04/2021 08:44:00 AM From: Hannah Murphy Admit Date: 02/12/2021 08:17:00 PM Patient Name: Nick Millard Visit Number: [id number] Discharge Date: 02/14/2021 02:56:00 PM ATTENTION: The Clinical Documentation Specialists (CDI) and [facility] Coding Staff appreciate your assistance in clarifying documentation. Please respond to the clarification below the line at the bottom and electronically sign. The CDI & [facility] Coding staff will review the response and follow-up if needed. Please note: Queries are made part of the Legal Health Record. If you have any questions, please contact the author of this message via ITS. Dr. Leroy Castorena, Sepsis is documented in the H&P and Dr Hardy's 02/13 PN , but is not noted in subsequent documentation. Clarification is requested. History/Risk Factors: overdose, ATN, metabolic encephalopathy, rhabdomyolysis Clinical Indicators: S/P overdose and change in mental status, metabolic encephalopathy. Elevated plasma lactic acid secondary to sepsis. WBC 20.0, Neutrophils 17.6, lactic acid 3.5, Creatine Kinase 4252, Cr 1.58 Treatment: IV fluids, IV Zoysn on 02/13 Please clarify if the sepsis is: [ ] Sepsis confirmed, remains under treatment [ ] Sepsis ruled out [ ] Other condition, please specify [ ] Unable to determine MTDD
--- NOTE | 2021-03-05 16:15 | MISC ---
MISCELLANOUS REPORT "Unable to determine" MMODL / IJN: [id number] /
--- NOTE | 2021-03-06 10:11 | MISC ---
MISCELLANOUS REPORT QUERY: Unable to determine. MMODL / IJN: [id number] /
== END 2021-02-14 14:56 | disposition left against medical advice (07) | DRG 917 ==
LOC: EC 17:49 → 3SCARD 20:17 → MERGE 20:17 → 3SCARD 02-13 12:06
PROVIDERS: ADMIT Family Medicine; ATTEND Family Medicine
DX: T50.911A Poisoning by multiple unspecified drugs, medicaments and biological substances, accidental (unintentional), initial encounter (principal); N17.0 Acute kidney failure with tubular necrosis; G93.41 Metabolic encephalopathy; M62.82 Rhabdomyolysis; D69.6 Thrombocytopenia, unspecified; E86.0 Dehydration; K75.9 Inflammatory liver disease, unspecified; F19.11 Other psychoactive substance abuse, in remission; Z20.822 Contact with and (suspected) exposure to COVID-19; E87.5 Hyperkalemia; R45.6 Violent behavior; Z56.0 Unemployment, unspecified
CPT/HCPCS: 36415; 70450; 74022; 76700; 80053; 80074; 80143; 80179; 80306; 80320; 81001; 82140; 82550; 83605; 83690; 83930; 85025; 85610; 87040; 87635; 93005; 93306; 96374; 96375; 96376; 99291

== ENCOUNTER 2021-03-09 10:27 | Emergency (ER) | payer OTHER ==
[2021-03-09] MEDS ORDERED: SODIUM CHLORIDE 0.9% 1,000 ML IV STA (10:48)
[2021-03-09 12:02] LABS: Basophils % (A) 0 %; Eosinophils # (A) 0.1 k/uL (0-0.7); Eosinophils % (A) 1 %; HCT 36.9 % (39.0-53.0); HGB 12.9 gm/dL (13.0-17.5); Lymphocytes # (A) 1.2 k/uL (1.0-4.8); Lymphocytes % (A) 12 %; MCH 34.8 pg (25.0-35.0); MCHC 35.1 g/dL (31.0-37.0); MCV 99.1 fL (80.0-100.0); Mean Platelet Volume 7.5; Monocytes # (A) 0.7 k/uL (0-1.0); Monocytes % (A) 6 %; Neutrophils # (A) 8.6 k/uL (1.3-7.7); Neutrophils % (A) 80 %; Platelet Count 179 k/uL (150-450); RBC 3.72 m/uL (4.30-5.90); RDW 11.8 % (11.5-15.5); WBC 10.7 k/uL (3.8-10.6)
[2021-03-09 12:13] LABS: ALT 28 U/L (4-49); AST 36 U/L (17-59); Acetaminophen <10.0 ug/mL; African American GFR (CKD) >90 (>60 ml/min/1.73 sqM); Albumin 4.2 g/dL (3.5-5.0); Alcohol <10 mg/dL; Alkaline Phosphatase 61 U/L (38-126); Anion Gap 7 mmol/L; Blood Urea Nitrogen 18 mg/dL (9-20); Carbon Dioxide 25 mmol/L (22-30); Chloride 105 mmol/L (98-107); Glucose 180 mg/dL (74-99); Non-African American GFR(CKD) >90 (>60 ml/min/1.73 sqM); Potassium 3.9 mmol/L (3.5-5.1); Salicylate <1.0 mg/dL; Sodium 137 mmol/L (137-145); Total Bilirubin 0.4 mg/dL (0.2-1.3); Total Protein 6.5 g/dL (6.3-8.2)
--- NOTE | 2021-03-09 12:23 | ED ---
Overdose HPI - General Source: patient, family, RN notes reviewed Mode of arrival: wheelchair Limitations: no limitations <Angel Fay - Last Filed: 03/09/21 12:17> <Brooklyn Flores - Last Filed: 03/10/21 01:24> - General Chief Complaint: Overdose Stated Complaint: Overdose Time Seen by Provider: 03/09/21 10:46 - History of Present Illness Initial Comments: Patient is a 26-year-old male that presents to the emergency Department via his friend who brought him here for a heroin overdose this morning. Then notes that he walked and noticed friend was unresponsive initiated CPR. Patient became alert and oriented but was brought to the emergency room for evaluation and observation. Patient states that this is not his first rodeo and then he would like to do anything to avoid needles. He was informed that he will get some hydration and be observed for a short while before being discharged. Patient denied any other symptoms or complaints. He was alert and oriented 3 in no apparent distress or pain. He denied any chest pain short of breath headache nausea vomiting diarrhea constipation fever fatigue chills. (Angel Fay) - Related Data Home Medications Medication Instructions Recorded Confirmed No Known Home Medications 02/12/21 03/09/21 Allergies Allergy/AdvReac Type Severity Reaction Status Date / Time No Known Allergies Allergy Verified 03/09/21 11:28 Review of Systems ROS Other: All systems not noted in ROS Statement are negative. <Angel Fay - Last Filed: 03/09/21 12:17> ROS Other: All systems not noted in ROS Statement are negative. <Brooklyn Flores - Last Filed: 03/10/21 01:24> ROS Statement: Those systems with pertinent positive or pertinent negative responses have been documented in the HPI. Past Medical History Past Medical History: No Reported History, Unable to Obtain Additional Past Medical History / Comment(s): Substance abuse History of Any Multi-Drug Resistant Organisms: None Reported, Unobtainable Past Surgical History: No Surgical Hx Reported, Unable to Obtain Additional Past Surgical History / Comment(s): Plates/screws right wrist approximately 10-17-20 at [facility] with Dr. Hernandez. Was supposed to finish all antibiotics after surgery, but only took a few. Patient was supposed to have plates and screws removed last week, but was unable due to elevated liver enzymes. Patient stated he removed his cast because it got "wet". Past Anesthesia/Blood Transfusion Reactions: No Reported Reaction Past Psychological History: No Psychological Hx Reported Smoking Status: Current every day smoker, Unknown if ever smoked Past Alcohol Use History: Occasional, Unable to Obtain Past Drug Use History: Heroin, Prescription Drug Abuse - Past Family History Mother Family Medical History: No Reported History <Angel Fay - Last Filed: 03/09/21 12:17> General Exam Limitations: no limitations General appearance: alert, in no apparent distress Head exam: Present: atraumatic, normocephalic, normal inspection Eye exam: Present: normal appearance, PERRL, EOMI. Absent: scleral icterus, conjunctival injection, periorbital swelling Neck exam: Present: normal inspection Respiratory exam: Present: normal lung sounds bilaterally. Absent: respiratory distress, wheezes, rales, rhonchi, stridor Cardiovascular Exam: Present: regular rate, normal rhythm, normal heart sounds. Absent: systolic murmur, diastolic murmur, rubs, gallop, clicks GI/Abdominal exam: Present: soft, normal bowel sounds. Absent: distended, tenderness, guarding, rebound, rigid Extremities exam: Present: normal inspection, full ROM, normal capillary refill. Absent: tenderness, pedal edema, joint swelling, calf tenderness Neurological exam: Present: alert, oriented X3 Psychiatric exam: Present: normal affect, normal mood Skin exam: Present: warm, dry, intact, normal color. Absent: rash <Angel Fay - Last Filed: 03/09/21 12:17> Course Vital Signs 03/09/21 03/09/21 10:30 13:30 Temperature 98.0 F 98.2 F Pulse Rate 92 78 Respiratory 18 16 Rate Blood Pressure 130/76 114/75 O2 Sat by Pulse 97 98 Oximetry Medical Decision Making - Lab Data Result diagrams: 03/09/21 11:41 03/09/21 11:41 - EKG Data -: EKG Interpreted by Ms EKG shows normal: sinus rhythm Rate: normal <Angel Fay - Last Filed: 03/09/21 12:17> - Lab Data Result diagrams: 03/09/21 11:41 03/09/21 11:41 <Brooklyn Flores - Last Filed: 03/10/21 01:24> - Medical Decision Making 26-year-old male status post heroin overdose this morning, alert and oriented 3 while sitting up in bed. Labs, EKG, 1 L normal saline ordered. Labs unremarkable. Case discussed with Dr. Flores, patient can discharge home with follow-up to primary care. (Angel Fay) I was available for consultation in the emergency department. The history and physical exam were done by the midlevel provider. I was consulted for this patients care. I reviewed the case with the midlevel provider and based on their presentation of the patient, I agree with the assessment, medical decision making and plan of care as documented. Chart was dictated using [employer] dictation software. Attempts were made to correct any dictation errors however some typographical errors may persist. (Brooklyn Flores) - Lab Data Lab Results 03/09/21 03/09/21 03/09/21 Range/Units 11:41 11:41 11:41 WBC 10.7 H (3.8-10.6) k/uL RBC 3.72 L (4.30-5.90) m/uL Hgb 12.9 L (13.0-17.5) gm/dL Hct 36.9 L (39.0-53.0) % MCV 99.1 (80.0-100.0) fL MCH 34.8 (25.0-35.0) pg MCHC 35.1 (31.0-37.0) g/dL RDW 11.8 (11.5-15.5) % Plt Count 179 (150-450) k/uL MPV 7.5 Neutrophils % 80 % Lymphocytes % 12 % Monocytes % 6 % Eosinophils % 1 % Basophils % 0 % Neutrophils # 8.6 H (1.3-7.7) k/uL Lymphocytes # 1.2 (1.0-4.8) k/uL Monocytes # 0.7 (0-1.0) k/uL Eosinophils # 0.1 (0-0.7) k/uL Basophils # 0.0 (0-0.2) k/uL Sodium 137 (137-145) mmol/L Potassium 3.9 (3.5-5.1) mmol/L Chloride 105 (98-107) mmol/L Carbon Dioxide 25 (22-30) mmol/L Anion Gap 7 mmol/L BUN 18 (9-20) mg/dL Creatinine 0.76 (0.66-1.25) mg/dL Est GFR (CKD-EPI)AfAm >90 (>60 ml/min/1.73 sqM) Est GFR (CKD-EPI)NonAf >90 (>60 ml/min/1.73 sqM) Glucose 180 H (74-99) mg/dL Calcium 9.0 (8.4-10.2) mg/dL Total Bilirubin 0.4 (0.2-1.3) mg/dL AST 36 (17-59) U/L ALT 28 (4-49) U/L Alkaline Phosphatase 61 (38-126) U/L Total Protein 6.5 (6.3-8.2) g/dL Albumin 4.2 (3.5-5.0) g/dL Salicylates <1.0 mg/dL Urine Opiates Screen Detected H (NotDetected) Ur Oxycodone Screen Not Detected (NotDetected) Urine Methadone Screen Not Detected (NotDetected) Ur Propoxyphene Screen Not Detected (NotDetected) Acetaminophen <10.0 ug/mL Ur Barbiturates Screen Not Detected (NotDetected) U Tricyclic Antidepress Not Detected (NotDetected) Ur Phencyclidine Scrn Not Detected (NotDetected) Ur Amphetamines Screen Not Detected (NotDetected) U Methamphetamines Scrn Not Detected (NotDetected) U Benzodiazepines Scrn Not Detected (NotDetected) Urine Cocaine Screen Not Detected (NotDetected) U Marijuana (THC) Screen Not Detected (NotDetected) Serum Alcohol <10 mg/dL - EKG Data EKG Comments: Ventricular rate 91 bpm, TX interval 160 ms, QRS duration 104 ms, QTC 472 ms, PRT axes 61/23/40. Normal sinus rhythm, normal ECG. (Angel Fay) Disposition Is patient prescribed a controlled substance at d/c from ED?: No Time of Disposition: 12:23 <Angel Fay - Last Filed: 03/09/21 12:17> <Brooklyn Flores - Last Filed: 03/10/21 01:24> Clinical Impression: Heroin overdose Disposition: HOME SELF-CARE Condition: Stable Instructions (If sedation given, give patient instructions): Adult Overdose (ED) Additional Instructions: Please return to the Emergency Department if symptoms worsen or any other concerns. Follow-up with primary care as needed. Avoid drug use. Referrals: Leroy Castorena MD [Primary Care Provider] - 1-2 days
[2021-03-09 13:29] LABS: Cocaine Screen,Urine Not Detected (NotDetected); Opiate Screen,Urine Detected (NotDetected); Phencyclidine Screen,Urine Not Detected (NotDetected); Urn Cannabinoid Scrn Not Detected (NotDetected)
[2021-03-09 13:30] LABS: Amphetamine Screen,Urine Not Detected (NotDetected); Barbiturate Screen,Urine Not Detected (NotDetected); Benzodiazepines Screen,Urine Not Detected (NotDetected); Methadone Screen, Urine Not Detected (NotDetected); Oxycodone Screen, Urine Not Detected (NotDetected); Tricyclic Antidepressant,Urine Not Detected (NotDetected)
[2021-03-09 13:32] VITALS: BP 114/75; PULSE 78; RESP 16; TEMP 98.2
== END 2021-03-09 13:32 | disposition home or self-care (01) ==
LOC: EC 10:27
DX: T40.1X1A Poisoning by heroin, accidental (unintentional), initial encounter (principal); F17.200 Nicotine dependence, unspecified, uncomplicated
CPT/HCPCS: 36415; 93005; 80053; 85025; 80306; 80143; 80179; 96360; 99284; G0480; 80320

== ENCOUNTER 2022-02-09 23:29 | Emergency (ER) | payer OTHER ==
[2022-02-10 01:17] VITALS: BP 125/72; PULSE 114; RESP 18; TEMP 98.2
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
[2022-02-10] MEDS ORDERED: cefTRIAXone 250 MG VIAL IM STA (02:25)
== END 2022-02-10 02:39 | disposition left against medical advice (07) ==
LOC: EC 23:29
DX: N50.819 Testicular pain, unspecified (principal); F19.10 Other psychoactive substance abuse, uncomplicated; F17.200 Nicotine dependence, unspecified, uncomplicated
CPT/HCPCS: 99284

== ENCOUNTER 2022-02-12 15:19 | Emergency (ER) | payer OTHER ==
[2022-02-12 15:28] VITALS: BP 133/89; PULSE 83; RESP 16; TEMP 98.5
--- NOTE | 2022-02-12 15:37 | ED ---
General Adult HPI - General Chief complaint: Recheck/Abnormal Lab/Rx Stated complaint: Withdrawl Time Seen by Provider: 02/12/22 15:35 Source: patient Mode of arrival: ambulatory Limitations: no limitations - History of Present Illness Initial comments: Patient presents to the ED requesting help with his opiate dependence. Patient states that he last used heroin 3 days ago, and he states that he has been having withdrawal symptoms of restlessness, anxiety and nausea/vomiting. Patient states that prior to 3 days ago, he was injecting heroin fairly r egularly. Patient denies any other opiate use. Patient denies any other illicit drug use. Patient denies alcohol abuse. Patient denies having any pain, trauma or injury, fever or chills, headache, focal neuro deficit, chest pain or pressure, dyspnea, palpitations, dizziness, abdominal pain, diarrhea or constipation, bloody or melanotic stool, hematemesis, dysuria or urinary symptoms, suicidal ideations, homicidal ideations, hallucinations, or any other symptoms or complaints. Patient states that he was on a Suboxone program in the past, but he was kicked out of the program due to noncompliance. - Related Data Previous Rx's Medication Instructions Recorded Doxycycline [Vibramycin] 100 mg PO BID 1 Days #20 each 02/10/22 Allergies Allergy/AdvReac Type Severity Reaction Status Date / Time No Known Allergies Allergy Verified 02/12/22 15:28 Review of Systems ROS Statement: Those systems with pertinent positive or pertinent negative responses have been documented in the HPI. ROS Other: All systems not noted in ROS Statement are negative. Past Medical History Past Medical History: No Reported History, Unable to Obtain Additional Past Medical History / Comment(s): Substance abuse History of Any Multi-Drug Resistant Organisms: None Reported, Unobtainable Past Surgical History: No Surgical Hx Reported, Unable to Obtain Additional Past Surgical History / Comment(s): Plates/screws right wrist approximately 10-17-20 at [facility] with Dr. Hernandez. Was supposed to finish all antibiotics after surgery, but only took a few. Patient was supposed to have plates and screws removed last week, but was unable due to elevated liver enzymes. Patient stated he removed his cast because it got "wet". Past Anesthesia/Blood Transfusion Reactions: No Reported Reaction Past Psychological History: No Psychological Hx Reported Smoking Status: Current every day smoker, Unknown if ever smoked Past Alcohol Use History: Occasional, Unable to Obtain Past Drug Use History: Heroin, Methamphetamine, Prescription Drug Abuse - Past Family History Mother Family Medical History: No Reported History General Exam Limitations: no limitations General appearance: alert, in no apparent distress Head exam: Present: atraumatic, normocephalic Eye exam: Present: normal appearance, PERRL, EOMI ENT exam: Present: mucous membranes moist Neck exam: Present: other (Trachea is in midline) Respiratory exam: Present: normal lung sounds bilaterally. Absent: respiratory distress, wheezes, rales, rhonchi, stridor Cardiovascular Exam: Present: regular rate, normal rhythm, normal heart sounds, other (Normal radial pulses bilaterally) GI/Abdominal exam: Present: soft. Absent: distended, tenderness, guarding Extremities exam: Absent: tenderness, pedal edema Neurological exam: Present: alert, oriented X3. Absent: motor sensory deficit Psychiatric exam: Present: normal affect, normal mood Skin exam: Present: warm, dry, intact, normal color Course Vital Signs 02/12/ 15:25 Temperature 98.5 F Pulse Rate 83 Respiratory 16 Rate Blood Pressure 133/89 O2 Sat by Pulse 100 Oximetry Medical Decision Making - Medical Decision Making Patient's vital signs are normal/reassuring. Patient was given a dose of ODT Zofran, as well as PO clonidine in the ED for management of his opiate withdrawal symptoms. Patient was also provided with a starter pack of ODT Zofran. EPS nurse to provide the patient with outpatient referral programs for opiate dependence. Patient was counseled about opiate dependence/withdrawal, and he was clearly explained return and follow-up instructions. Patient was also instructed to follow up closely with his primary care provider. Patient feels comfortable this plan. Disposition Clinical Impression: Opiate dependence, Opiate withdrawal Disposition: HOME SELF-CARE Condition: Stable Instructions (If sedation given, give patient instructions): Opioid Withdrawal (ED), Opioid Use Disorder (ED) Additional Instructions: Return to the ER immediately should you develop any significant pain, persistent vomiting, shortness of breath, feeling dizzy or faint, or new or worsening symptoms. Follow up closely with your primary care provider. Is patient prescribed a controlled substance at d/c from ED?: No Referrals: Leroy Castorena MD [Primary Care Provider] - 1-2 days Time of Disposition: 15:49
[2022-02-12] MEDS ORDERED: ONDANSETRON ODT 4 MG TAB PO STA (15:41)
[2022-02-12] MEDS ORDERED: cloNIDine HCL 0.1 MG TAB PO STA (15:41)
[2022-02-12] MEDS ORDERED: ONDANSETRON 4 MG ODT STARTER PACK 2 TAB BTL PO STA (15:42)
== END 2022-02-12 16:25 | disposition home or self-care (01) ==
LOC: EC 15:19
DX: F11.23 Opioid dependence with withdrawal (principal); F17.200 Nicotine dependence, unspecified, uncomplicated
CPT/HCPCS: 99284

== ENCOUNTER 2022-03-12 02:03 | Emergency (ER) | payer OTHER ==
[2022-03-12 02:16] VITALS: BP 119/78; TEMP 98.3
[2022-03-12 03:13] VITALS: PULSE 79; RESP 12
--- NOTE | 2022-03-12 03:13 | ED ---
Fall HPI - General Chief Complaint: Fall Stated Complaint: fall, overdose Time Seen by Provider: 03/12/22 02:55 Source: patient, EMS Mode of arrival: EMS - History of Present Illness Initial Comments: This patient is a 27-year-old man who presents to have evaluation of face injury after he had a fall. The patient states that he had been using some heroin earlier and he did attempt to get up and ambulate, was unsteady and fell. He is not believe he lost consciousness. Patient's denies any neurologic symptoms. MD Complaint: fall -: hour(s) Fall From: standing Fall Witnessed: no Place Fall Occurred: home Loss of Consciousness: none Prolonged Down Time?: no Symptoms Prior to Fall: lightheadedness Location: head, face Severity: moderate Quality: dull Context: tripped/slipped - Related Data Previous Rx's Medication Instructions Recorded Doxycycline [Vibramycin] 100 mg PO BID 1 Days #20 each 02/10/22 Allergies Allergy/AdvReac Type Severity Reaction Status Date / Time No Known Allergies Allergy Verified 02/12/22 15:28 Review of Systems ROS Statement: Those systems with pertinent positive or pertinent negative responses have been documented in the HPI. ROS Other: All systems not noted in ROS Statement are negative. Constitutional: Denies: fever, weakness Eyes: Denies: eye pain, vision change Respiratory: Denies: cough, dyspnea Cardiovascular: Denies: chest pain, palpitations, edema Gastrointestinal: Denies: abdominal pain, vomiting, diarrhea Genitourinary: Denies: dysuria, hematuria Musculoskeletal: Denies: back pain Neurological: Denies: headache, weakness, numbness Past Medical History Past Medical History: No Reported History, Unable to Obtain Additional Past Medical History / Comment(s): Substance abuse History of Any Multi-Drug Resistant Organisms: None Reported Past Surgical History: No Surgical Hx Reported, Unable to Obtain Additional Past Surgical History / Comment(s): Plates/screws right wrist approximately 10-17-20 at [facility] with Dr. Hernandez. Was supposed to finish all antibiotics after surgery, but only took a few. Patient was supposed to have plates and screws removed last week, but was unable due to elevated liver enzymes. Patient stated he removed his cast because it got "wet". Past Anesthesia/Blood Transfusion Reactions: No Reported Reaction Past Psychological History: Anxiety, Depression Smoking Status: Current every day smoker Past Alcohol Use History: Occasional Past Drug Use History: Heroin, Methamphetamine, Opiates, Prescription Drug Abuse - Past Family History Mother Family Medical History: No Reported History General Exam Limitations: no limitations General appearance: alert, in no apparent distress Head exam: Present: normocephalic, other (There is contusion with some moderate tenderness) Eye exam: Present: normal appearance, PERRL, EOMI. Absent: scleral icterus, conjunctival injection, nystagmus ENT exam: Present: normal oropharynx Neck exam: Present: normal inspection Respiratory exam: Present: normal lung sounds bilaterally. Absent: respiratory distress, wheezes, rales, rhonchi, stridor Cardiovascular Exam: Present: regular rate, normal rhythm, normal heart sounds. Absent: systolic murmur, diastolic murmur, rubs, gallop GI/Abdominal exam: Present: soft. Absent: distended, tenderness, guarding, rebound, rigid, mass Extremities exam: Present: normal inspection, normal capillary refill. Absent: pedal edema, calf tenderness Back exam: Present: normal inspection. Absent: CVA tenderness (R), CVA tenderness (L), vertebral tenderness Neurological exam: Present: alert, CN II-XII intact. Absent: motor sensory deficit Skin exam: Present: warm, dry, normal color Course Vital Signs 03/12/22 03/12/22 02:05 03:13 Temperature 98.3 F Pulse Rate 91 79 Respiratory 16 12 Rate Blood Pressure 119/78 O2 Sat by Pulse 98 Oximetry Medical Decision Making - Medical Decision Making Patient is a 27-year-old man presenting after a ground-level fall with head inj ury. There is moderate tenderness at the site of injury and I was going to send the patient for computed tomography scan to rule out a fracture. I was informed that the patient had gone into the bathroom and then there was a disagreement with nursing staff and the patient had decided to leave without completing treatment. I was seeing another patient at the time and unable to speak with patient Disposition Clinical Impression: Fall, Head injury Disposition: Left Against Medical Advice Condition: Undetermined Is patient prescribed a controlled substance at d/c from ED?: No Referrals: None,Stated [Primary Care Provider] - 1-2 days
[2022-03-12] MEDS ORDERED: predniSONE 20 MG TAB PO STA (03:19)
== END 2022-03-12 03:35 | disposition left against medical advice (07) ==
LOC: EC 02:03
DX: S00.93XA Contusion of unspecified part of head, initial encounter (principal); Z53.29 Procedure and treatment not carried out because of patient's decision for other reasons; F17.200 Nicotine dependence, unspecified, uncomplicated; W01.0XXA Fall on same level from slipping, tripping and stumbling without subsequent striking against object, initial encounter; Y92.009 Unspecified place in unspecified non-institutional (private) residence as the place of occurrence of the external cause
CPT/HCPCS: 93005; 99284

== ENCOUNTER 2022-03-25 17:21 | Emergency (ER) | payer OTHER ==
[2022-03-25 17:41] VITALS: BP 146/110; PULSE 114; RESP 20; TEMP 98.3
--- NOTE | 2022-03-25 18:07 | ED ---
General Adult HPI - General Chief complaint: Overdose Stated complaint: overdose Time Seen by Provider: 03/25/22 17:47 Source: patient, police, EMS Mode of arrival: EMS Limitations: no limitations - Related Data Previous Rx's Medication Instructions Recorded Doxycycline [Vibramycin] 100 mg PO BID 1 Days #20 each 02/10/22 Allergies Allergy/AdvReac Type Severity Reaction Status Date / Time No Known Allergies Allergy Verified 03/25/22 17:41 Review of Systems ROS Statement: Those systems with pertinent positive or pertinent negative responses have been documented in the HPI. ROS Other: All systems not noted in ROS Statement are negative. Past Medical History Past Medical History: No Reported History, Unable to Obtain Additional Past Medical History / Comment(s): Substance abuse History of Any Multi-Drug Resistant Organisms: None Reported Past Surgical History: No Surgical Hx Reported, Unable to Obtain Additional Past Surgical History / Comment(s): Plates/screws right wrist approximately 10-17-20 at [facility] with Dr. Hernandez. Was supposed to finish all antibiotics after surgery, but only took a few. Patient was supposed to have plates and screws removed last week, but was unable due to elevated liver enzymes. Patient stated he removed his cast because it got "wet". Past Anesthesia/Blood Transfusion Reactions: No Reported Reaction Past Psychological History: Anxiety, Depression Smoking Status: Current every day smoker Past Alcohol Use History: Occasional Past Drug Use History: Heroin, Methamphetamine, Opiates, Prescription Drug Abuse - Past Family History Mother Family Medical History: No Reported History General Exam Limitations: no limitations Course Vital Signs 03/25/22 17:36 Temperature 98.3 F Pulse Rate 114 H Respiratory 20 Rate Blood Pressure 146/110 O2 Sat by Pulse 98 Oximetry Medical Decision Making - Medical Decision Making Patient is brought in by EMS for alleged opiate overdose. Cranial nerves patient overdosed on injectable vent on the right aide bathroom. Patient brought to the ER. Patient left AGAINST MEDICAL ADVICE prior to being evaluated by physician. Disposition Clinical Impression: Overdose Disposition: Left Against Medical Advice Condition: Undetermined Instructions (If sedation given, give patient instructions): Adult Overdose (ED) Referrals: None,Stated [Primary Care Provider] - 1-2 days Time of Disposition: 18:07
== END 2022-03-25 18:17 | disposition left against medical advice (07) ==
LOC: EC 17:21
DX: T40.601A Poisoning by unspecified narcotics, accidental (unintentional), initial encounter (principal); F17.200 Nicotine dependence, unspecified, uncomplicated